=== PATIENT | female | born 1950 | race Caucasian/White ===

== ENCOUNTER 2024-01-13 08:15 | Outpatient (CLI) | payer MEDICARE, SELFPAY ==
--- NOTE | ~2024-01-13 | XR_ITS ---
EXAMINATION: XR lg joint inject/asp w image DATE: 01/13/2024 09:21 INDICATION: Left hip arthritis TECHNIQUE: A time-out was performed to verify the patient's name, date of , and procedure to b e performed. The procedure including the risks, benefits, and alternatives was discussed with the pat ient. Risks discussed included bleeding and infection. The patient understood the risks and agreed to proceed. The skin overlying the left hip joint was prepped and draped in usual sterile fashion. An esthetic was administered with 1% lidocaine subcutaneously. A 22 G needle was advanced under fluoros copic guidance into the joint. Injection of 1 mL of Omnipaque 240 confirmed intra-articular position of the needle. Subsequently, injectate consisting of 3 mL of a 2:1 mixture of 0.5% bupivacaine: 80 mg/mL Depo-Medrol for a total dosage of 80 mg Depo-Medrol was instilled. Washout of contrast was seen confirming intra-articular administration. The needle was removed and the entry site was cleaned and dressed. There were no immediate complications. Fluoroscopy exposure time was 0.1 minutes. The tota l number of images was 4. FINDINGS: Real-time fluoroscopy demonstrates the needle in the left joint. Patient's pain prior to pr ocedure:10/08. Patient's pain following the procedure: 05/11. IMPRESSION: 1. Successful left hip joint injection of local anesthetic and steroid with decrease in the patient's presenting pain. Reviewed, dictated and finalized at location A. IMPRESSION: 1. Successful left hip joint injection of local anesthetic and steroid with dec rease in the patient's presenting pain.
== END 2024-01-13 08:16 | disposition home or self-care (01) ==
LOC: ANHIMG 08:23
PROVIDERS: Visit Provider Orthopaedic Surgery
DX: M16.12 Unilateral primary osteoarthritis, left hip (principal)
CPT/HCPCS: 20610; 77002; J1010; Q9966

== ENCOUNTER 2024-04-21 13:58 | Outpatient (CLI) | payer MEDICARE, SELFPAY ==
--- NOTE | ~2024-04-21 | XR_ITS ---
EXAMINATION: XR lg joint inject/asp w image DATE: 04/21/2024 14:51 INDICATION: Left hip osteoarthritis TECHNIQUE: A time-out was performed to verify the patient's name, date of , and procedure to b e performed. The procedure including the risks, benefits, and alternatives was discussed with the pat ient. Risks discussed included bleeding and infection. The patient understood the risks and agreed to proceed. The skin overlying the left hip joint was prepped and draped in usual sterile fashion. An esthetic was administered with 1% lidocaine subcutaneously. A 22 G needle was advanced under fluoros copic guidance into the joint. Injection of 1 mL of Omnipaque 240 confirmed intra-articular position of the needle. Subsequently, injectate consisting of 3 mL of a 2:1 mixture of 0.5% bupivacaine: 80 mg/mL Depo-Medrol for a total dosage of 80 mg Depo-Medrol was instilled. Washout of contrast was seen confirming intra-articular administration. The needle was removed and the entry site was cleaned and dressed. There were no immediate complications. Fluoroscopy exposure time was 0.1 minutes. The tota l number of images was 2. Total DAP was 0.575 Gycm^2. FINDINGS: Real-time fluoroscopy demonstrates the needle in the left hip joint. Patient's pain prior t o procedure:12/09. Patient's pain following the procedure: 07/09. IMPRESSION: 1. Successful left hip joint injection of local anesthetic and steroid with decrease in the patient's presenting pain. Reviewed, dictated and finalized at location A. 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 Successful left hip joint injection of local anesthetic and steroid with dec rease in the patient's presenting pain.
--- OUTSIDE RECORDS SUMMARY | 2024-04-23 18:39 | XMS_ITS | Encounter Summary ---
Author Organization [facility] Address [address] [place] [address]. [place], [place] [id number] [place] [id number] Care Team Providers Care Development Professional Name Role Phone Yisel Su MD Primary Care Provider [phone] SumeetManuel Ruiz MD Primary Care Prov ider Encounter Details Date Type Department Care Team (Late Contact Info) Description 06/15/2021 Prep for Procedure [facility] [place] [address] Isaias Plascencia, DO [address] [facility] [address] [place] [address] Social History Tobacco Use Types Packs/Day Years Used Date Smoking Tobacco: Every Day Cigarettes 0.5 50 Smokeless Tobacco: Never Alcohol Use Standard Drinks/Week Comments Never 0 (1 standard drink = 0.6 oz pur e alcohol) Comments No Sex and Gender Information Value Date Recorded Sex Assigned at Not on file Legal Sex Female 10:35 AM CDT Gender Identity Not on file Sexual Orientation Not on file COVID-19 Exposure Response Date Recorded In the last 10 days, have yo u been in contact with someone who was confirmed or suspected to have Coronavirus/COVID-19? No / Unsure 06/15/2021 1:50 PM CDT documented as of this encounter Plan of Treatment Upcoming Encounters Date Type Department Care Team (Late st Contact Info) Description 08/17/2024 10:15 AM CDT Office Visit [facility], [address] [place] [address] Arleth Chavez, ANP- [facility]. 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
--- OUTSIDE RECORDS SUMMARY | 2024-04-23 18:39 | XMS_ITS | Data Portability ---
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 Name Role Phone ARAMIS SANCHES Primary Care Provider Assessment Encounter Date Assessment Date Assessment LastModified by Organization Details LastModified Time 10/24/2023 10/24/2023 72 yo; PMHx of DM, HTN, GERD ( h/o Barrets esophagus), CAD, Osteopenia, and HLD; presenting for med f/u, was restarted lisinopril for uncontrolled HTN [email or web address] Not available 10/26/2023 09:08:21 12/13/2023 12/13/2023 72 yo; PMHx of DM, HTN, GERD ( h/o Barrets esophagus), CAD, Osteopenia, and HLD; presenting for med f/u, was restarted lisinopril for uncontrolled HTN [email or web address] Not available 12/13/2023 09:04:34 01/07/2024 01/07/2024 72 yo; PMHx of DM, HTN, GERD ( h/o Barrets esophagus), CAD, Osteopenia, and HLD is here to discuss MRI results and med refill [email or web address] Not available 01/09/2024 23:45:41 02/06/2024 02/06/2024 72 yo; PMHx of DM, HTN, GERD ( h/o Barrets esophagus), CAD, Osteopenia, LBP and HLD is here for dental pain [email or web address] Not available 02/09/2024 19:47:25 Plan of Treatment Reminders Order Date Submit Date Provider Last Modified By Organization Details Last Modified Time Details Appointments ANY 15 2024 11:00A Mounika Sanches MD Not available Not available Not available Lab TSH + free T4, serum 2023 024 [facility], [address] [facility] [address] [address], [place], [address], 01/08/2024 04:11:30 HbA1c (hemog lobin A1c), blood 2023 024 [email or web address] In-Office Order, Internal Use Only DO Not Attach Compendium DO Not Attach Compendium, Do Not Delete/merge, [id number] 01/10/2024 00:03:11 BMP, serum or plasma 2023 024 [facility], [address] [facility] [address] [address], [place], [address], 01/08/2024 04:11:31 HbA1c (hemog lobin A1c), blood 2023 024 [email or web address] In-Office Order, Internal Use Only DO Not Attach Compendium DO Not Attach Compendium, Do Not Delete/merge, [id number] 03/13/2024 15:00:30 Referral dermat ologis t referr al [address] [facility], [address] , [place], [address], 01/13/2024 17:00:12 Procedures None record ed. Surgeries None record ed. Imaging MRI, lumbar spine, w/o contra st - Sciati c distri bution L leg pain and 1 month urinar y hesita ncy 2023 024 [facility], [address], [place], [address], 12/19/2023 18:44:55 US, pelvis , transa bdomin al + transv aginal 2023 024 [facility], [address] [facility], [place], [address], 02/10/2024 17:53:00 Medication Orders lisino pril 20 mg tablet 2023 024 [facility], [address] [place], [address], 01/09/2024 23:51:03 omepra zole 40 mg capsul e,azra yed releas e 2023 024 [facility], [address] [place], [address], 10/26/2023 09:20:53 tramad ol 50 mg tablet [address] [facility], [address] [place], [address], 12/13/2023 16:54:38 lisino pril 40 mg tablet [address] [facility], [address] [place], [address], 12/13/2023 15:14:48 meloxi cam 15 mg tablet 2023 024 [facility], [address] [place], [address], 04/07/2024 12:48:32 gabape ntin 600 mg tablet 2023 024 [facility], [address] [place], [address], 01/07/2024 10:22:28 amoxic illin 875 mg-pot assium clavul anate 125 mg tablet 2023 025 [facility], [address] [place], [address], 04/07/2024 12:38:00 Jardia nce 10 mg tablet 2023 024 [facility], [address] [facility] [facility] , [place], [address], 03/13/2024 15:00:45 Patient TargetsNo targets recorded. Patient Instructions Encounter Date Encounter Id Patient Instructions Last Modified By Organization Details Last Modified Time 10/24/2023 [id number] I was present to discuss the patient case with the resident in the Teach room. Agree with documentation. Angie Pop MD Family Medicine Faculty [email or web address] Not available 10/28/2023 15:21:06 12/13/2023 [id number] 72 yo w/ left hip/groin pain overlapping with c/o radicular left leg pain since July but worse in last month. Reportedly had MRI that showed advanced arthritis of L hip and plain films of lumbar spine that were relatively unremarkable, per her report. Urinary hesitancy present for a month and she relates it to worsening of the groin pain that radiates to (her) foot . MRI lumbar spine to rule out contribution to sx recommended. I was present and available in the family medicine clinic to discuss the patient's care during the appointment and the case was discussed with me. I interviewed and examined the patient.?? I agree with the resident's assessment and plan as documented.?? HL [email or web address] Not available 12/13/2023 17:05:43 01/07/2024 [id number] On the date of this encounter, I was available to assist the resident in the care of the patient, and have reviewed and agree with the resident? s findings and plan of care.---ALIA [email or web address] Not available 01/15/2024 09:12:54 02/06/2024 [id number] tooth decay: care instructions [email or web address] Not available 02/09/2024 19:53:07 I was present in the clinic to discuss this patient at the time of the visit. I agree with the documented assessment and plan. Bety Lawton MD [email or web address] Not available 02/10/2024 14:11:53 03/13/2024 [id number] A healthy lifestyle: care instructions [email or web address] Not available 03/13/2024 15:00:30 I was present and available in the Family Medicine clinic to discuss this patient's care for the duration of the appointment. I agree with the resident's assessment and plan as documented with the following addendum: None. Dr. Catracho Haji MD, FMOB Attending Physician, [facility]. 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 Referral for H istory of malignant melanoma of the skin Referring Physician: Aramis Sanches, Rotary Slicing Machine Operator, Encounter Date: 10/24/2023 Results Created Date Observation Date Name Description Value Unit Range Abnormal Flag Note LastModifiedBy Organization Detail LastModifiedTime 01/07/2001/08/2024 TSH+F REE T4 TSH 2.060 uIU/m L 0.450- 4.500 Not Available [facility] ([facility]) [address] [place], [address], 01/08/2024 04:11:29 01/07/2001/08/2024 TSH+F REE T4 T4,free(dire ct) 1.20 NG/dL 0.82-1 .77 Not Available [facility] ([facility]) [address] [place], [address], 01/08/2024 04:11:29 01/07/20 24 01/08/2024 BASIC METAB OLIC PANEL (8) glucose 137 mg/dL 70-99 above high normal Not Available [facility] ([facility]) [address] [place], [address], 01/08/2024 04:11:31 01/07/2001/08/2024 BASIC METAB OLIC PANEL (8) BUN 22 mg/dL 8-27 Not Available [facility] ([facility]) [address] [place], [address], 01/08/2024 04:11:31 01/07/20 24 01/08/2024 BASIC METAB OLIC PANEL (8) creatinine 0.77 mg/dL 0.57-1 .00 Not Available [facility] ([facility]) [address] [place], [address], 01/08/2024 04:11:31 01/07/2001/08/2024 BASIC METAB OLIC PANEL (8) eGFR 82 mL/mi n/1.7 3 >59 Not Available [facility] ([facility]) [address] [place], [address], 01/08/2024 04:11:31 01/07/2001/08/2024 BASIC METAB OLIC PANEL (8) BUN/creatini ne ratio 29 12-28 above high normal Not Available [facility] ([facility]) [address] [facility] [place], [address], 01/08/2024 04:11:31 01/07/2001/08/2024 BASIC METAB OLIC PANEL (8) sodium 138 mmol/ L 134-14 4 Not Available [facility] ([facility]) [address] [facility] [place], [address], 01/08/2024 04:11:31 01/07/2001/08/2024 BASIC METAB OLIC PANEL (8) potassium 5.0 mmol/ L 3.5-5. 2 Not Available [facility] ([facility]) [address] [facility] [place], [address], 01/08/2024 04:11:31 01/07/2001/08/2024 BASIC METAB OLIC PANEL (8) chloride 98 mmol/ L 96-106 Not Available [facility] ([facility]) [address] [facility] [place], [address], 01/08/2024 04:11:31 01/07/2001/08/2024 BASIC METAB OLIC PANEL (8) carbon dioxide, total 22 mmol/ L 20-29 Not Available [facility] ([facility]) [address] [facility] [place], [address], 01/08/2024 04:11:31 01/07/20 24 01/08/2024 BASIC METAB OLIC PANEL (8) calcium 9.7 mg/dL 8.7-10 .3 Not Available [facility] ([facility]) [address] [facility], [place], [address], 01/08/2024 04:11:31 01/07/20 24 01/07/2024 HbA1c (hemo globi n A1c), blood HbA1c 6.8 Not Available In-Office Order Internal Use Only DO Not Attach Compendium DO Not Attach Compendium, Do Not Delete/merge, [id number] 01/07/2024 10:49:35 03/13/20 24 03/13/2024 HbA1c (hemo globi n A1c), blood HbA1c 7.2 Not Available In-Office Order Internal Use Only DO Not Attach Compendium DO Not Attach Compendium, Do Not Delete/merge, [id number] 03/13/2024 14:34:51 12/19/19 24 12/18/2023 MRI, lumba r spine , w/o contr ast No observ ation record ed. [facility] [address], [place], [address], 12/31/2023 09:58:06 02/26/20 24 US, pelvi s, compl ete [facility] [address] [place] [address] [facility] [place] [address] [facility] [address] [place] [id number] CHRISTINA G BARB S: US PELVIC NON OB COMP TA DATE: 2023 3:06 PM HISTOR Y: Pain in pelvis . 73-yea r-old postme nopaus al female . Left lower quadra nt abdomi nal/pe lvic pain and left groin pain since July 2023. Patien t report s prior hip proble ms with therap eutic inject ions but pain never entire ly resolv ed. Report ed family histor y of inguin al hernia s. Report ed prior transv aginal pelvic ultras ound at [facility] with report ed few small calcif ied fibroi ds but otherw ise negati ve. Deedee killian report s histor y of laparo scopic evalua tion of her left ovary but no surgic al interv ention /oopho rectom y. COMPAR TRAM: None this instit ution. Report ed prior pelvic ultras ound is not in the PACS system . DISCUS EUSEBIO: Transa bdomin al pelvic ultras ound: Anteve rted uterus is 5.8 x 2.5 x 4.7 cm. Endome trium not adequa tely visual ized on transa bdomin al imagin g. Ovarie s are not visual ized due to bowel. No appare nt free pelvic fluid. On limite d imagin g [facility] the left [facility] ed area of pain, no apprec iable sonogr aphic abnorm ality. Pativipin t declin ed transv aginal pelvic ultras ound exam today statin g she had one done at [facility]. IMPRES EUSEBIO: 1. Only transa bdomin al examin ation perfor med as the patien t declin ed transv aginal imagin g. 2. Relati vely small uterus . Otherw ise limite d evalua tion of the uterus includ ing inabil ity to adequa tely visual ize the endome trium. 3. Bowel gas obscur es the ovarie s and adnexa (ovari es not visual ized on transa bdomin al imagin g). 4. Consid er furthe r evalua tion with pelvic CT and/or MRI if clinic ally indica wily. Ordere d By: ROZINA Callejas onical ly Signed By: Monica Keys on 2023 8:44 AM Interp reted By: Monica Keys , 2023 8:32 AM cathyshravan [facility] [address] [facility], [place], [address], 02/26/2024 13:08:33 Result Notes None recorded. Problems Name Problem SNOMED Code Status Onset Date Resolution Date Notes Provider Name and Address Organization Details Recorded Time Tobacco dependen ce syndrome 20680499 Active 2017 1/2ppd currentl [place] rTuong [place], [place] - [facility] 8 15:26:50 Osteopen ia 879476855 Active 2017 10 yr FRAX risk: Major osteopor otic = 8.0%, Hip Fracture = 0.7%. (cutoffs 20%, 3.0% respecti vely) Truong Arevalo [place], [place] - [facility] 8 15:47:33 Hyperlip idemia 62281895 Active 2020 JOHN SINGH MD Attn: Accounting, [address] [place], [address], [place] [facility] 4 11:34:35 Liver enzymes level above referenc e range 010111724 Completed 202010/08/2023 JOHN SINGH MD Attn: Accounting, [address] [place], [address], [place] [facility] 4 11:54:25 Coronary atherosc lerosis 992706102 Active 2020 Yisel [place] [facility] 1 16:36:13 SARS-CoV -2 mRNA vaccine declined 4525862712 Active 2021 JOHN SINGH MD Attn: Accounting, [address] [place], [address], [place] [facility] 4 11:46:00 Diabetes mellitus 53280832 Active 2022 Y[place] [facility] 3 12:30:50 Pain in finger 85534574 Active 2022 [place] [facility] 3 12:30:52 Neuropat hy 899006652 Active 2022 Yisel [place] [facility] 3 12:30:53 Smoker 10835235 Active 2022 [place] [facility] 3 12:30:56 Fatigue 13567205 Active 2022 [place] [facility] 3 12:30:59 Morbid obesity 351866742 Completed 202204/21/2022 Removal Reason: BMI <35 JOHN SINGH MD Attn: Accounting, [address] [facility], [place], [address], [place] [facility] 4 11:52:46 Bilatera l trigger fingers 5637454062 1720188 Active 2022 Yisel [place] [facility] 3 19:56:46 Ingrowin g toenail 034702845 Active 2022 Yisel [place] [facility] 3 19:56:47 Liver enzymes level above referenc e range 393300303 Active 2020 JOHN SINGH MD Attn: Accounting, [address] [facility], [place], [address], [place] [facility] 4 11:54:25 Patel' s esophagu s 476460323 Completed 202404/07/2024 Allegra Herrera RN [place] [facility] 5 16:39:40 Bleeding internal hemorrho ids 98301193 Completed 201611/14/2017 Removal Reason: resolved Truong [place] [facility] 8 15:26:00 Patel' s esophagu s with esophagi tis 509145259 Completed 201611/14/2017 Tru[place] [facility] 15:26:33 Adult health examinat ion Completed 201612/20/2016 Tru[place] [facility] 7 16:27:19 Body mass index 30+ - obesity 330462362 Active 2016 JOHN SINGH MD Attn: Accounting, [address] [facility], [place], [address], [place] [facility] 4 11:46:16 Type 2 diabetes mellitus 28692539 Active 2016 a1c 7.2 10/2017 from 7.0 06/2017. [place] [facility] 8 15:55:01 Increase d blood pressure 42619325 Completed 201604/20/2022 Removal Reason: Progress ed to hyperten sive disorder JOHN SINGH MD Attn: Accounting, [address] [facility], [place], [address], [place] [facility] 4 11:45:33 Epigastr ic pain 32627562 Completed 201611/14/2017 Removal Reason: resolved Tru[place] [facility] 8 15:26:12 Gastro-e sophagea l reflux disease with esophagi tis 274871412 Active 2016 +Patel 's esophagu s Truong [place] [facility] 15:26:30 Problem Notes None recorded. Procedures Surgical History Date Name Laterality Status Provider Name and Address Organization Details Recorded Time 2 Diabetic Foot Exam [place] [facility] 09/22/2021 13:58:46 1 Diabetic Foot Exam [place] [facility] 07/22/2020 11:37:38 8 Diabetic Foot Exam [place] [facility] 07/23/2017 10:56:17 8 Joint Injection [place] [facility] 07/23/2017 10:57:58 8 Ankle arthroscopy/rucker rgery [place] Truong [place] [facility] 12/20/2016 19:04:09 3 Ankle arthroscopy/rucker rgery [place] Tru[place] [facility] 12/20/2016 19:03:36 1 Knee Surgery [place] Truong [place] [facility] 12/20/2016 19:04:53 Imaging Results Imaging Date Name Status LastModified by Organiz ation Details LastModified Time 12/18/2023 MRI, lumbar spine, w/o contrast completed [facility] [address], [place], [address], 12/31/2023 09:58:06 02/26/2024 US, pelvis, complete completed [facility] [address] [facility], [place], [address], 02/26/2024 13:08:33 Procedure Notes None recorded. Medical Equipment None Reported. Allergies Allergen ID Allergen Name Allergen Category Reaction Reaction Severity Criticality Documentation Date Start Date Code Code System Note Provider Name and Address Organization Details Recorded Time [id number] egg extract food,medi cation itching Not available Not available 09/22/2021 61057 15 RxNorm Not Available Not Available Not Available [id number] 1bdae lactase medicatio n itching Not available Not available 09/22/2021 48905 RxNorm Not Available Not Available Not Available [id number] c2b23 Milk (substanc e) food,medi cation itching Not available Not available 06/11/2023 85552 002 SNOMED Not Available Not Available Not Available Medications Name Sig Start Date Stop Date Status Note LastModified by Organization Details LastModified Time atorvasta tin 40 mg tablet Take 1 tablet every day by oral route. 10/21 completed Not Available Not Available Not Available metformin 500 mg tablet Take 1 tablet by mouth once daily for 90 days active Not Available Not Available No t Available atorvasta tin 80 mg tablet Take 1 tablet every day by oral route. 04/22 completed Not Available Not Available Not Available gabapenti n 600 mg tablet TAKE 1 TABLET BY MOUTH AT BEDTIME FOR NEUROPAT HY active Not Available Not Available No t Available azithromy jose 250 mg tablet TAKE 2 TABLETS BY MOUTH ON DAY 1, AND THEN TAKE 1 TABLET BY MOUTH ONCE A DAY ON DAY 2 THROUGH DAY 5 02/05 completed Not Available Not Available Not Available glyburide 5 mg tablet Take by oral route for 90 days. 04/20 completed Not Available Not Available Not Available metoprolo l succinate ER 50 mg tablet,ex tended release 24 hr Take 1 tablet every day by oral route in the morning. active Not Available Not Available No t Available hydrocodo ne 5 mg-acetam inophen 325 mg tablet TAKE 1 TABLET BY MOUTH EVERY 6 HOURS NEEDED 08/21 completed Not Available Not Available Not Available meloxicam 15 mg tablet TAKE 1 TABLET BY MOUTH ONCE DAILY WITH A MEAL FOR HIP PAIN 2024 active Not Available Not Available Not Avai lable lisinopri l 20 mg tablet TAKE 1 TABLET BY MOUTH ONCE DAILY 01/08 completed Not Available Not Available Not Available clopidogr el 75 mg tablet 08/21 completed Not Available Not Available Not Available amlodipin e 5 mg tablet 03/13 completed Not Available Not Available Not Available omeprazol e 40 mg capsule,d elayed release TAKE 1 CAPSULE BY MOUTH ONCE DAILY active Not Available Not Available No t Available aspirin 81 mg tablet,de layed release Take 1 tablet every day by oral route. active Not Available Not Available No t Available tramadol 50 mg tablet TAKE 1 TABLET BY MOUTH TWICE DAILY NEEDED active Not Available Not Available No t Available spironola ctone 25 mg tablet 11/25 completed Not Available Not Available Not Available glimepiri de 2 mg tablet TAKE 1 TABLET BY MOUTH ONCE DAILY 10/08 completed Not Available Not Available Not Available dexametha sone sodium phosphate 0.1 % eye drops 05/06 completed Not Available Not Available Not Available meloxicam 7.5 mg tablet Take 1 tablet every day by oral route. 08/21 completed Not Available Not Available Not Available oxycodone -acetamin ophen 5 mg-325 mg tablet active Not Available Not Available Not Available amlodipin e 10 mg tablet Take 1 tablet every day by oral route. active Not Available Not Available No t Available triamcino lone acetonide 40 mg/mL suspensio n for injection in office - med provided 11/14 completed charted by sweis,cm a Not Available Not Available Not Available erythromy jose 5 mg/gram (0.5 %) eye ointment APPLY 1 CM RIBBON INTO THE LOWER CONJUNCT IVAL SAC(S) IN THE AFFECTED EYE(S) BY OPHTHALM IC ROUTE 3 TIMES PER DAY 11/14 completed Not Available Not Available Not Available metformin 1,000 mg tablet TAKE 1 TABLET BY MOUTH TWICE DAILY active Not Available Not Available No t Available lisinopri l 10 mg tablet Take 1 tablet every day by oral route as directed . 08/21 completed Not Available Not Available Not Available metoprolo l tartrate 50 mg tablet active Not Available Not Available Not Available nitroglyc jame 0.4 mg sublingua l tablet active Not Available Not Available Not Available gabapenti n 300 mg capsule Take 1 capsule every day by oral route at bedtime for 30 days. 04/20 completed Not Available Not Available Not Available lisinopri l 5 mg tablet Take 1 tablet by mouth once daily active Not Available Not Available No t Available lisinopri l 40 mg tablet TAKE 1 TABLET BY MOUTH ONCE DAILY active Not Available Not Available No t Available metformin ER 500 mg tablet,ex tended release 24 hr Take 1 tablet twice a day by oral route for 60 days. 08/21 completed Not Available Not Available Not Available amoxicill in 875 mg-potass ium clavulana te 125 mg tablet Take 1 tablet every 12 hours by oral route with meal(s) for 7 days, for dental caries. 04/07 completed Not Available Not Available Not Available cyclobenz aprine 5 mg tablet TAKE 1 TABLET BY MOUTH THREE TIMES DAILY NEEDED FOR MUSCLE SPASM 08/21 completed Not Available Not Available Not Available Ciprodex 0.3 %-0.1 % ear drops,jerri pension INSTILL 4 DROPS INTO AFFECTED EAR(S) BY OTIC ROUTE 2 TIMES PER DAY FOR 7 DAYS 05/06 completed Not Available Not Available Not Available rosuvasta tin 20 mg tablet Take 1 tablet by mouth once daily 2024 active Not Available Not Available Not Avai lable metformin ER 1,000 mg tablet,ex tended release 24hr (osmotic) 08/24 completed Not Available Not Available Not Available omeprazol e 40 mg-sodium bicarbona te 1.1 gram capsule Take 1 capsule twice a day by oral route. 11/14 completed Not Available Not Available Not Available nebivolol 10 mg tablet TAKE 1 TABLET BY MOUTH ONCE DAILY active Not Available Not Available No t Available diclofena c 1 % topical gel APPLY 2 GRAM TO THE AFFECTED AREA(S) BY TOPICAL ROUTE 4 TIMES PER DAY 05/06 completed Not Available Not Available Not Available ticagrelo r 90 mg tablet Take 1 tablet twice a day by oral route. 01/19 completed Not Available Not Available Not Available Jardiance 10 mg tablet Take 1 tablet every day by oral route for 30 days. active Not Available Not Available No t Available OneTouch Ultra Blue Test Strip 04/22 completed Not Available Not Available Not Available OneTouch Ultra2 Meter 04/22 completed Not Available Not Available Not Available OneTouch Delica Plus Lancet 33 gauge 04/22 completed Not Available Not Available Not Available Vitals Date Recorded Body height Provider Name an d Address Organization Details Last Updated DateTime 10/24/2023 167.64 cm Melissa Marshall MA [facility] 10:45:06 Date Recorded Body mass index (BMI) Body weight Provider Name and Address Organization Details Last Updated DateTime 10/24/2023 31.6 kg/m2 10319.1 g Melissa Marshall MA [facility] 10/24/2023 10:46:37 Date Recorded Heart rate Provider Name an d Address Organization Details Last Updated DateTime 10/24/2023 69 /min Melissa Marshall MA [facility] 024 10:47:28 Date Recorded Oxygen saturation Oxygen saturation in Arterial blood by Pulse oximetry Provider Name and Address Organization Details Last Updated DateTime 10/24/2023 96 % 96 % Melissa Marshall MA [facility] 10/24/2023 10:47:32 Date Recorded Body temperature Provider Name a nd Address Organization Details Last Updated DateTime 10/24/2023 98.3 [degF] Melissa Marshall MA [facility] 2023 10:48:58 Date Recorded Body height Provider Name an d Address Organization Details Last Updated DateTime 12/13/2023 167.64 cm Mirella Vazquez MA [facility] 12/13/2023 09:01:53 Date Recorded Body mass index (BMI) Body weight Provider Name and Address Organization Details Last Updated DateTime 12/13/2023 30.1 kg/m2 94653.98 g BOOKER Tony [facility] 12/13/2023 09:04:58 Date Recorded Body temperature Provider Name a nd Address Organization Details Last Updated DateTime 12/13/2023 97.2 [degF] Mirella Vazquez MA [facility] [facility] 12/13/2023 09:05:00 Date Recorded Oxygen saturation Oxygen saturation in Arterial blood by Pulse oximetry Provider Name and Address Organization Details Last Updated DateTime 12/13/2023 98 % 98 % BOOKER Tony [facility] 12/13/2023 09:05:14 Date Recorded Heart rate Provider Name an d Address Organization Details Last Updated DateTime 12/13/2023 102 /min Mirella Vazquez MA [facility] 11/30 09:05:16 Date Recorded Body height Provider Name an d Address Organization Details Last Updated DateTime 01/07/2024 167.64 cm Asad Hand MA [facility] 2023 09:58:32 Date Recorded Body mass index (BMI) Body weight Provider Name and Address Organization Details Last Updated DateTime 01/07/2024 31.2 kg/m2 20628.33 g Asad Hand MA [facility] 01/07/2024 09:58:35 Date Recorded Heart rate Provider Name an d Address Organization Details Last Updated DateTime 01/07/2024 75 /min Asad Hand MA [facility] 2023 10:00:10 Date Recorded Body temperature Provider Name a nd Address Organization Details Last Updated DateTime 01/07/2024 97.4 [degF] Asad Hand MA [facility] 01/07/2024 10:00:38 Date Recorded Body height Provider Name an d Address Organization Details Last Updated DateTime 02/06/2024 167.64 cm Mirella Vazquez MA [facility] 02/06/2024 12:38:22 Date Recorded Body mass index (BMI) Body weight Provider Name and Address Organization Details Last Updated DateTime 02/06/2024 31.3 kg/m2 79247.27 g Daynarosalba BOOKER Vazquez [facility] 02/06/2024 12:40:37 Date Recorded Body temperature Provider Name a nd Address Organization Details Last Updated DateTime 02/06/2024 98.6 [degF] Mirella Vazquez MA [facility] 02/06/2024 12:40:40 Date Recorded Oxygen saturation Oxygen saturation in Arterial blood by Pulse oximetry Provider Name and Address Organization Details Last Updated DateTime 02/06/2024 96 % 96 % Mirella Vazquez MA [facility] 02/06/2024 12:40:43 Date Recorded Heart rate Provider Name an d Address Organization Details Last Updated DateTime 02/06/2024 88 /min iMrella Vazquez MA [facility] 09/2023 12:40:47 Date Recorded Body height Provider Name an d Address Organization Details Last Updated DateTime 03/13/2024 167.64 cm Mirella Vazquez MA [facility] 03/13/2024 14:14:08 Date Recorded Body mass index (BMI) Body weight Provider Name and Address Organization Details Last Updated DateTime 03/13/2024 31.8 kg/m2 59305.1 g Mirella Vazquez MA [facility] 03/13/2024 14:24:54 Date Recorded Body temperature Provider Name a nd Address Organization Details Last Updated DateTime 03/13/2024 98.6 [degF] Mirella Vazquez MA [facility] 03/13/2024 14:25:09 Date Recorded Oxygen saturation Oxygen saturation in Arterial blood by Pulse oximetry Provider Name and Address Organization Details Last Updated DateTime 03/13/2024 95 % 95 % Mirella Vazquez MA [facility] 03/13/2024 14:25:49 Date Recorded Heart rate Provider Name an d Address Organization Details Last Updated DateTime 03/13/2024 86 /min Mirella Vazquez MA [facility] 03/01 14:26:18 Date Recorded Systolic blood pressure Diastolic blood pressure Provider Name and Address Organization Details Last Updated DateTime 10/24/2023 175 mm[Hg] 78 mm[Hg] Melissa Marshall [place] [facility] [place] 10/24/2023 10:47:10 Date Recorded Systolic blood pressure Diastolic blood pressure Provider Name and Address Organization Details Last Updated DateTime 10/24/2023 132 mm[Hg] 77 mm[Hg] Aramis Sanches MD Attn: [address] [place], [address], [place] [facility] [place] 10/24/2023 11:12:43 Date Recorded Systolic blood pressure Diastolic blood pressure Provider Name and Address Organization Details Last Updated DateTime 12/13/2023 177 mm[Hg] 103 mm[Hg] Mirella Vazquez [place] [facility] [place] 12/13/2023 09:06:32 Date Recorded Systolic blood pressure Diastolic blood pressure Provider Name and Address Organization Details Last Updated DateTime 01/07/2024 176 mm[Hg] 91 mm[Hg] Asad Hand [place] [facility] [place] 01/07/2024 10:00:31 Date Recorded Systolic blood pressure Diastolic blood pressure Provider Name and Address Organization Details Last Updated DateTime 01/07/2024 156 mm[Hg] 86 mm[Hg] Aramis Sanches MD Attn: [address] [place], [address], [place] 01/07/2024 10:25:13 Date Recorded Systolic blood pressure Diastolic blood pressure Provider Name and Address Organization Details Last Updated DateTime 02/06/2024 153 mm[Hg] 80 mm[Hg] Mirella Vazquez [place] [facility] [place] 02/06/2024 12:41:44 Date Recorded Systolic blood pressure Diastolic blood pressure Provider Name and Address Organization Details Last Updated DateTime 02/06/2024 149 mm[Hg] 87 mm[Hg] Aramis Sanches MD Attn: [address] [place], [address], [place] 02/06/2024 13:09:34 Date Recorded Systolic blood pressure Diastolic blood pressure Provider Name and Address Organization Details Last Updated DateTime 03/13/2024 153 mm[Hg] 81 mm[Hg] Mirella Vazquez [place] [facility] [place] 03/13/2024 14:26:21 Date Recorded Systolic blood pressure Diastolic blood pressure Provider Name and Address Organization Details Last Updated DateTime 03/13/2024 122 mm[Hg] 77 mm[Hg] Aramis Sanches MD Attn: [address], [place], [address], [facility] 03/13/2024 14:59:25 Social History Question Answer Notes LastModified by Organizat ion Details LastModified Time Tobacco Smoking Status Current Every Day Smoker Truong Arevalo [place], [facility] 03/23/2019 15:23:05 What Is Your Level Of Alcohol Consumption? None Information not available 07/22/2020 Do You Or Have You Ever Used E-cigarettes Or Vape? Never Used Electronic Cigarettes Information not available 04/22/2020 What Was The Date Of Your Most Recent Tobacco Screening? 03/13/2024 Information not available 03/13/2024 Do You Or Have You Ever Used Smokeless Tobacco? Never Used Smokeless Tobacco Information not available 04/22/2020 How Much Tobacco Do You Smoke? 0.5 PPD -Pt Says She Is Down To 2 Cigarettes Per Day. (08/23/2020) 01/19/21 States Approx 1/2 Pack/day. [email or web address] Information not available 01/19/2021 Do You Use Any Illicit Or Recreational Drugs? No Information not available 07/22/2020 Has Tobacco Cessation Counseling Been Provided? Yes Information not available 02/06/2024 On What Date Was Tobacco Cessation Counseling Provided? 02/06/2024 Information not available 02/06/2024 How Many Years Have You Smoked Tobacco? 40 [email or web address] Information not available 12/20/2016 Do You Or Have You Ever Used Any Other Forms Of Tobacco Or Nicotine? No [email or web address] Information not available 08/23/2020 Sex: Unknown Functional Status None recorded. Mental Status None recorded. Family History Relationship Description Onset Age of this Age Resolved Age Notes LastModified by Organization Details LastModified Time Father Coronary arterioscler osis [email or web address] Not available 2016 18:58:36 Father Hypertensive disorder Not available 2016 18:59:13 Father Diabetes mellitus [email or web address] Not available 2016 18:59:23 Brother Coronary arterioscler osis 35 [email or web address] Not available 2016 18:58:42 Mother Hypertensive disorder [email or web address] Not available 2016 18:59:13 Mother Hypothyroidi sm [email or web address] Not available 2016 18:59:32 Medical History Condition Response Coronary Artery Disease N Thyroid Disease N Atrial Fibrillation N Depression N COPD N Congenital Heart Disease N Peripheral Arterial Disease N Pacemaker N Anemia N TIA N Genitourinary Disease N Gastrointestinal Disease N Deep Vein Thrombosis N Diabetes Y Cardiomyopathy N Blood Clot N Myocardial Infarction N Congestive Heart Failure (CHF) N Valvular Heart Disease N Hyperlipidemia Y Cancer N Stroke N Asthma N Atrial Flutter N Carotid Disease N Sleep Apnea N Sleep Disorder N Aortic Aneurysm N GERD/Reflux N High Cholesterol Y Warfarin Management N Neurologic Disorder N Liver Disease N Heart Disease N Valvular Abnormalities N Arrhythmia Y Hypertension Y Kidney Disease N Hematologic Disease N Gynecological History Statement/Question Response Menses Monthly N Date of Last Pap Smear Date of Last Mammogram Obstetrics History GPAL:G 0 P 0 0 0 0 Past Encounters Encounter ID Performer Location Encounter Start Date Encounter Closed Date Diagnosis/Indication Diagnosis SNOMED-CT Code Diagnosis ICD10 Code Diagnosis Note [id number] Alayna Harris MD [facility] ([address]) [address] [place] [address] 12/20/2016 14:49:37 12/21/2016 11:39:04 Increased blood pressure 14140286 R03.0 Initially 164/96, 140/88 on recheck.- Will repeat at nurse visit in 1 week, if >140/90 will start lisinopril 20 QD. Type 2 bob betes mellitus 91306382 E11.9 Reported A1C 04/2016 of 6.7%, already on metformin 500 BID, strong FmHx of CAD and PVD.- repeat A1C- lipid panel- microalbum in:creatin ine- BMP- calculate ASCVD, consider statin Patel's esophagus with esophagitis 414566354 K22.70 Dx 2011, apparent recent EGD 2013.- Will get outside records and refer to GI. Bleeding i nternal hemorrhoids 02410016 K64.8 Dx 2011, apparent recent EGD 2013. - Will get outside records and refer to GI. Adult heal th examination 687306642 Z00.00 Need hx of paps and DEXA. Pt c/o fatigue. Pt to get outside records. Declines all vaccines at this time.- Consider CBC, TSH if fatigue continues. - Needs mammo Body mass index 30+ - obesity 511665593 Z68.39 Counseled weight loss with exercise and dietary changes. [id number] Alayna Harris MD [facility] ([address]) [address] [place] [address] 12/27/2016 13:45:53 12/28/2016 10:17:31 Increased blood pressure 67601869 R03.0 164/96, 140/88 on recheck 12/20/47287 /80 today.- BP at goal, no medical management at this time. [id number] Alice fraire MD [facility] [address] [facility] [address] [place] [address] 04/11/2017 11:13:15 04/16/2017 16:52:42 Corneal abrasion 87943551 S05.02XA Tetracaine administer ed in office. Provided script for erythromyc in ointment. If pain worsens in 2-3days or patient notices worsening vision, fevers/chi lls/discha rge RTC HIRO or call for Ophtho referral. [id number] Timothy Bagley MD [facility] [address] [facility] [address] [place] [address] 07/23/2017 09:57:35 07/24/2017 13:56:40 Type 2 diabetes mellitus 15334650 E11.9 Last A1c 6.6 (11/2016). Reports good compliance with daily metformin regiment. New-onset peripheral neuropathy of toes bilaterall y. Will get repeat A1c, podiatry, and optometry referral today. Screening for malignant neoplasm of breast 192166703 Z12.31 Last screening mammogram several years ago. Does note history of cystic lesion within left? breast. Patient unsure whether right versus left but suspects left breast. Will get repeat screening annual mammogram today. Adult the [facility] examination 121043058 Z00.00 Overall healthy-ap pearing 66-year-ol d seen in clinic today for routine clinic follow-up visit. Preventati ve medicine: -Mammograp hy: Repeat annual mammogram today -Colonosco py: Last colonoscop y 11/2016, negative recommende d repeat 10 years -Recommend ed Pneumovax vaccinatio n today, patient declined Trigger finger 070466184 1 94218 M65.30 Right hand, 4th finger trigger finger injection in office today. Tolerated the procedure well without complicati ons. See procedure note for details. [id number] Romi Elosidavid [facility] [address] [facility] [address] [place] [address] 11/14/2017 14:04:37 11/15/2017 16:57:33 Type 2 diabetes mellitus 67400690 E11.9 Control:- a1c 7.0 07/23/2017- repeat a1c Meds:- continue metformin 500/bid Ppx/Survei llance:- on high-inten sity statin, ASA 81- would start ACEi/ARB if needed for BP- urine microalbum in, CMP, CBC, lipid Complicati ons:- neuropathy : mild subjective plantar numbness- nephropath y: none- retinopath y: none Gastro-eso phageal reflux disease with esophagitis 388417431 K21.0 Hx of Patel's. Sx controlled with PPI. Long-term PPI use can be associated with malabsorpt ion syndromes. Also, pt states potentiall y inappropri ate multiple OTC vitamins and supplement s.- continue omeprazole 40/d- bring all OTC supplement s and vitamins to next appt- check CBC, CMP, Mg Myalgia/my ositis - multiple 149247325 M79.1 Chronic, stable, not improving. No hx or external signs of trauma. DDx: dehydratio n, endocrine and/or metabolic derangemen t, rhabdomyol ysis, inflammato ry myositis:- ESR, CRP, CK- CMP as above Fatigue 57601976 R53.83 Chronic, stable, not improving. DDx: anemia, endocrine and/or metabolic derangemen t- CBC as above- TSH reflex T4- CMP as above Multiple joint pain 3567 8005 M25.50 Chronic, worsening. Mild non-specif ic findings on joint exam, potentiall y indicative of inflammato ry arthritis. DDx OA.- anti-CCP: IgA/IgG, Rh factor- CBC, CMP as above Screening for osteoporosis 237930991 Z13.820 Postmenopausal state 764 74762 Z78.0 [id number] Alice fraire MD [address] [address] 12/23/2017 10:36:51 12/24/2017 10:53:31 Otitis externa 0762641 H60.91 Uncomplica wily otitis externa over the right ear. We will treat with Ciprodex, 4 gtt twice daily ? 7 days. If symptoms continue to persist/no t-improve over the next 1-2 weeks patient to return to clinic for repeat evaluation . [id number] Rafael Benavides DO [address] [address] 01/23/2018 11:44:06 01/24/2018 10:23:35 Tendinitis of right pes anserinus 2738970429 9533067 M76.891 1 month of pain, worse with activity better with rest. Tried occasional aleve, sam newman, cold pack. - topical diclofenac up to qid- avoid oral NSAIDs- RICE- RTC 4-6 weeks if no improvemen t to re-assess- would likely send for PT if continued pain [id number] Scooter Esparza MD [address] [address] 03/02/2019 14:19:21 03/06/2019 11:44:34 Type 2 diabetes mellitus 53847278 E11.9 Control:- a1c 7.1 10/2017- repeat a1c Meds:- continue metformin 500/bid Ppx/Survei llance:- on high-inten sity statin, ASA 81- would start ACEi/ARB if needed for BP- urine microalbum in, CMP, CBC, lipid Complicati ons:- neuropathy : mild subjective plantar numbness- nephropath y: none- retinopath y: none Gastro-eso phageal reflux disease with esophagitis 862349528 K21.0 Hx of Patel's. Sx controlled with PPI. Long-term PPI use can be associated with malabsorpt ion syndromes. Also, pt states potentiall y inappropri ate multiple OTC vitamins and supplement s.- continue omeprazole 40/d- send to GI for repeat EGD given continued chronic need of PPI. Hepatitis C screening 41 9826268 Z11.59 Pt requests HCV screening [id number] Boyd Rodriguez MD [facility] [address] [facility] [address] [place] [address] 04/22/2020 10:36:56 04/25/2020 11:54:14 Obesity 146211478 E66.9 BMI 33.7. A1c due at this time, as well as CBC BMP Lipids. Patient's symptoms possibly 2/2 to hypothyroi dism. Check TSH today. Stable angina 309914906 I20.8 CP with exertion. Has had stress tests previously , 7 years ago. Patient's parents have both had quadruple bypass. Patient denies Chest pain at this time. Refer to cardiology today. Continue ASA 81 mg daily. Gastro-eso phageal reflux disease with esophagitis 820989476 K21.00 Patient previously establishe d with Dr. Vides. Patient with establishe d GERD with esophagiti s. Symptoms concerning for developing Patel's esophagus. Follow up with Dr. Vides. New Gastroente rology referral placed. EGD needed. Type 2 bob betes mellitus 80468963 E11.9 Patient currently taking Metformin 500mg once a day due to intoleranc e with higher doses. Continue at once a day and follow up A1c. Myalgia ca used by statin 2159777717 3053904 M79.10 Myalgia's 2/2 to Atorvastat in use. Discontinu e today and switch to a different statin. Obtain lipid panel today. Calculate ASCVD after receiving results. [id number] Chris Arredondo MD [facility] [address] [place] [address] 05/06/2020 14:14:57 05/12/2020 10:00:18 Chest pain on exertion 96228295 R07.89 exertional chest pain, abnormal ECG Dyspnea on exertion 6084 5006 R06.09 Hyperlipidemia 47087293 E78.5 recheck on crestor [id number] Maryse Martinez [facility] [address] [facility] [address] [place] [address] 07/22/2020 10:38:10 07/25/2020 06:54:52 Type 2 diabetes mellitus 93698775 E11.9 Last A1C:{{less than 7.0% 7-8% 8-9%* grea ter than 9%}}Goal A1C less than:{{7.0 % 8.0%*}}C urrent Therapy:{{ metformin sulfonylur ea TZD SGL T-2 DDP-4 GLP-1 RA long-ac ting insulin ra pid/short- acting insulin me tformin 500 mg QD#}} {{metformi n sulfonyl urea TZD S GLT-2 DDP- 4 GLP-1 RA long-ac ting insulin ra pid/short- acting insulin}}S tatin:{{ye s* no decl ined due to adverse reaction/a llergy dec lined}}GABRIEL /ARB:{{yes no* no due to negative nephropath y screening contraindi cated decl ined due to adverse reaction/a llergy dec lined}}Donovan t Exam:{{com pleted in the past 12 months-neg ative comp leted in the past 12 months-pos itive* com pleted in the past 12 months- result unknown du e}}Nephrop athy Screening: {{complete d in the past 12 months- negative c ompleted in the past 12 months- positive d ue*}}Pneum ovax 23:{{UTD D eclined No t given*}}Ey e Exam:{{com pleted in the last 12 months- negative c ompleted in the last 12 months- positive c ompleted per patient report due - recommende d annual dilated eye exam*}}Pat ient Education: healthy diet: {{yes no}} exercise: {{yes no}} weight loss: {{yes no}} foot care: {{yes no}} complicati ons of uncontroll ed diabetes: {{yes no}} medicatio n compliance : {{yes no}} Will not start new DM medication today. Patient to continue to improve on diet. Will repeat A1c in 3 months and initiate new DM medication if necessary. Pt verbalized understand ing. Next Visit: {{1 2 3* 4 5 6 7 8 9 10 11 12} } {{week(s) month(s)*} } Diabetic p eripheral neuropathy 187913491 E11.40 Diabetic peripheral neuropathy noted. Loss of sensation bilaterall y, worse on left than right. -start gabapentin 300 mg nightly Elevated blood-pressure reading without diagnosis of hypertension 400430534 R03.0 Elevated BP today 144/86, 150/84 on repeat. Previously on anti-hyper tensive in remote past per pt report. -Keep home BP log -Check BP at next visit. Will initiate anti-hyper tensive at that time if blood pressure is still elevated. Pneumococc al vaccination declined 692892298 Z28.21 Patient due for pneumovax. Patient declines at this time. Gastro-eso phageal reflux disease with esophagitis 425412877 K21.00 Patient previously establishe d with Dr. Vides for GERD with esophagiti s. Symptoms concerning for developing Patel's esophagus. GI referral placed at last visit. GI recommendi ng EGD. Patient refusing due to need for COVID test prior to procedure. Instructed patient to return to clinic if symptoms worsen. Will leave referral in place. -continue omeprazole [id number] Scooter Esparza MD [facility] [address] [address] 08/23/2020 13:57:31 08/24/2020 09:42:31 Coronary arteriosclerosis 42602993 I25.10 Left heart catheteriz ation revealed a 60% non-flow limiting lesion of the mid LAD, nonobstruc tive disease of the circumflex , and severe lesions of the mid and distal RCA s/p 2 stents. - Continue ASA, ticagrelor , and atorvastat in - Requesting new referral to cardiology - ER precaution s given Type 2 bob betes mellitus 12620860 E11.9 Last A1C:{{less than 7.0% 7-8% 8-9% great er than 9% 8.4 06/2020#}}G oal A1C less than:{{7.0 % 8.0%*}}C urrent Therapy:{{ metformin sulfonylur ea TZD SGL T-2 DDP-4 GLP-1 RA long-ac ting insulin ra pid/short- acting insulin me tformin 500 mg BID#}} {{metformi n sulfonyl urea TZD S GLT-2 DDP- 4 GLP-1 RA long-ac ting insulin ra pid/short- acting insulin}}S tatin:{{ye s* no decl ined due to adverse reaction/a llergy dec lined}}GABRIEL /ARB:{{yes no* no due to negative nephropath y screening contraindi cated decl ined due to adverse reaction/a llergy dec lined}}Donovan t Exam:{{com pleted in the past 12 months-neg ative comp leted in the past 12 months-pos itive* com pleted in the past 12 months- result unknown du e}}Nephrop athy Screening: {{complete d in the past 12 months- negative c ompleted in the past 12 months- positive* due}}Pneum ovax 23:{{UTD D eclined* N ot given}}Eye Exam:{{com pleted in the last 12 months- negative c ompleted in the last 12 months- positive c ompleted per patient report due - recommende d annual dilated eye exam*}}Pat ient Education: healthy diet: yes exercise: no weight loss: no foot care: yes complicati ons of uncontroll ed diabetes: no medication compliance : yes Recommend titrating metformin to 2000 mg daily; will switch to ER due to GI upset Did not tolerate jardiance due to recurrent years infections ; will avoid SGTL-2 i at this time Recommend starting GLP agonist at follow up-discuss ed with patient who agrees to plan Next Visit: {{1 2 3 4* 5 6 7 8 9 10 11 12} } {{week(s)* month(s)} } [id number] MD Ofelia Alas [address] [address] 10/21/2020 14:45:13 10/24/2020 10:19:52 Body mass index 30+ - obesity 411138059 Z68.32 Discussed diet as the mainstay of losing weight. Goal 10% TBW loss in 3 months.150 mins of moderate intensity physical activity recommende d per week, divided per pt's choice. Increased blood pressure 08327871 R03.0 Chronic, uncontroll edGoal <140<90BP today 142/70. Alb/cr slightly elevated at last check-Cons ider Adding Lisinopril at next visit. Type 2 bob betes mellitus 56325481 E11.9 Last A1C:{{less than 7.0%* 7-8% 8-9% grea ter than 9%}} A1c 6.7 today, at goalGoal A1C less than:{{7.0 %* 8.0%}}C urrent Therapy:{{ metformin sulfonylur ea TZD SGL T-2 DDP-4 GLP-1 RA long-ac ting insulin ra pid/short- acting insulin me tformin 500 mg ER BID#}}Stat in:{{yes* no decline d due to adverse reaction/a llergy dec lined}}GABRIEL /ARB:{{yes no* no due to negative nephropath y screening contraindi cated decl ined due to adverse reaction/a llergy dec lined}}Donovan t Exam:{{com pleted in the past 12 months-neg ative comp leted in the past 12 months-pos itive* com pleted in the past 12 months- result unknown du e}}Nephrop athy Screening: {{complete d in the past 12 months- negative c ompleted in the past 12 months- positive* due}}Pneum ovax 23:{{UTD D eclined* N ot given}}Eye Exam:{{com pleted in the last 12 months- negative c ompleted in the last 12 months- positive c ompleted per patient report due - recommende d annual dilated eye exam*}}Pat ient Education: healthy diet:yesex ercise:yes weight loss:yesfo ot care:yesco mplication s of uncontroll ed diabetes:y esmedicati on compliance :yesNext Visit: {{1* 2 3 4 5 6 7 8 9 10 11 12} } mnths-RX sent for Metformin 500 mg ER BID-RTC 1 month to re-assess diarrhea-P t to call and schedule eye exam Coronary atherosclerosis 793713093 I25.84 Left heart catheteriz ation revealed a 60% non-flow limiting lesion of the mid LAD, nonobstruc tive disease of the circumflex , and severe lesions of the mid and distal RCA s/p 2 stents. Reports to current chest pain or dyspnea since procedure. - Continue ASA, ticagrelor , and atorvastat in- ER precaution s given Administra tion of SARS-CoV-2 antigen vaccine 604797039 Z23 Patient declined COVID Vaccine. Screening mammography 24 930278 Z12.31 Due for mammogram per USPSTF guidelines . Last mammogram was 2017.-Prakashe r placed for screening mammogram Tobacco de pendence syndrome 96168089 F17.200 Was smoking 1ppd , cut down to half ppd.Encour aged pt on cutting down. Discussed other methods of relaxation . Hyperlipidemia 52717676 E78.5 Last lipid panel 04/2020 when Atorvastat in was initiated. Repeat Lipid panel ordered. Pt to return for fasting labwork at earliest convenienc e.Continue Rosuvastat in 20 mg Diarrhea 51352810 R19.7 Present for a few months. Denies blood in stool. Says it's been worse since combining regular metformin and ER Metformin. Will send script for Metformin ER and lower dose to 500 mg BID. Re-assess in 4 weeks. Consider further workup if not improved. [id number] MD Ofelia Alas [address] [address] 11/25/2020 14:33:33 11/28/2020 12:44:34 Body mass index 30+ - obesity [id number] Z68.32 Discussed diet as the mainstay of losing weight. Goal 10% TBW loss in 3 months.150 mins of moderate intensity physical activity recommende d per week, divided per pt's choice. Type 2 bob betes mellitus 28688298 E11.9 Chronic, stableCurr ent Therapy:{{ metformin sulfonylur ea TZD SGL T-2 DDP-4 GLP-1 RA long-ac ting insulin ra pid/short- acting insulin me tformin 500 mg ER BID#}}Curr ently on Rosuvastat inNeeds GABRIEL/ARB due to + nephropath y screening. Foot exam performed in the last year, +Declined pneumovax. Patient Education: healthy diet:yesex ercise:yes weight loss:yesfo ot care:yesco mplication s of uncontroll ed diabetes:y esmedicati on compliance :yes-Vicente nue Metformin 500 mg ER 1 tab qam, 2 tabs QHS-DC Metformin 500 mg QAM-Pt to call and schedule eye exam Diarrhea 70255347 R19.7 Present for a few months. Denies blood in stool. Consider further workup if not improved. Microalbuminuria 2001323 06 R80.9 Alb/Cr elevated. Will start Lisinopril 5 mg QD today. Instructed pt to keep track of BP. Adult [facility] th examination [id number] Z00.00 Last colonoscop y 12/2016 was normal with recommenda tions for 10 yr follow up. Next colonoscop y 12/2026.De clined pneumonia vaccine.De clined COVID vaccine. Declines COVID testing for any in-hospita l procedures . [id number] Bety Lawton MD [facility] 47 3 [facility] [address] [place] [address] 01/19/2021 13:38:26 01/20/2021 09:36:27 Obesity 450025677 E66.9 BMI 33.7.Discu ssed diet as the mainstay of losing weight. Goal 10% TBW loss in 3 months. 150 mins of moderate intensity physical activity recommende d per week, divided per pt's choice. Diarrhea 92929353 R19.7 Present for a few months. Improving over time per patient report. Denies blood in stool. Continue Metformin ER as prescribed . Consider discontinu ing if no further improvemen t. Type 2 bob betes mellitus 31445309 E11.9 Chronic, [id number] 7 todayCurre nt Therapy:{{ metformin sulfonylur ea TZD SGL T-2 DDP-4 GLP-1 RA long-ac ting insulin ra pid/short- acting insulin me tformin 500 mg ER BID#}}On GABRIEL/ARB due to + nephropath y screening. Foot exam performed in the last year, +Declined pneumovax. Patient Education: healthy diet:yesex ercise:yes weight loss:yesfo ot care:yesco mplication s of uncontroll ed diabetes:y esmedicati on compliance :yes-Vicente nue Metformin 500 mg ER BID-Pt to call and schedule eye exam-Pt willing to continue Rosuvastat in Adult the [facility] examination [id number] Z00.00 Last colonoscop y 12/2016 was normal with recommenda tions for 10 yr follow up. Next colonoscop y 12/2026.De clined pneumonia vaccine.De clined COVID vaccine. Declines COVID testing for any in-hospita l procedures . Microalbuminuria 9243334 06 R80.9 Alb/Cr elevated. Continue Lisinopril 5 mg QD today. Instructed pt to keep track of BP.Will renew lisinopril today but will consider decreasing metoprolol eventually if dizziness persists. Diabetic p eripheral neuropathy 389276583 E11.40 Chronic, stable-Rx sent for Gabapentin 300 TID Dizziness 704688149 R42 Acute, unresolved Ddx: dehydratio n vs medication relatedWil l continue Lisinopril and metoprolol as is for now.Consid er decreasing metoprolol if dizziness persists.I nstructed patient on adequate water intake. Pain of ri ght ankle joint [id number] M25.571 Previous right ankle fracture. Recent re-appeari ng right ankle pain and edema contributi ng to recent unsteadine ss. Will refer to podiatry and this time and consider PT referral in the future for mobility and strengthen ing. [id number] Jose Ramírez MD [facility] 47 [address] [facility] [address] [place] [address] 05/29/2021 16:46:02 05/30/2021 12:52:47 Type 2 diabetes mellitus 28238199 E11.9 Chronic, [id number] 7 todayCurre nt Therapy:Gl yburideOn GABRIEL/ARB due to + nephropath y screening. Foot exam performed in the last year, +Declined pneumovax. Patient Education: healthy diet:yesex ercise:yes weight loss:yesfo ot care:yesco mplication s of uncontroll ed diabetes:y esmedicati on compliance :yes-disco ntinue Metformin 500 mg ER BID due to continued diarrhea-P t to call and schedule eye exam-vicente nue Rosuvastat in, intoleranc e to lipitor-Ur ine Alb/Cr ordered, BMP ordered-Rx sent for Glyburide 5 mg qd, discussed risks of hypoglycem ia. Patient wishes to initiate anyway. Declined Victoza. Previous intoleranc e of Jardiance. Screening mammography 24 455222 Z12.31 Due for mammogram per USPSTF guidelines . Last mammogram was in 2018.-Orde r placed for screening mammogram SARS-CoV-2 mRNA vaccine declined [id number] Z28.21 Patient refuses covid vaccine. Discussed risks and benefits. Gastro-eso phageal reflux disease with esophagitis 736996337 K21.00 continue omeprazole . refill placed. [id number] Ángel Sawyer [facility] [address] [facility] [address] [place] [address] 09/22/2021 11:45:22 09/25/2021 12:11:30 Type 2 diabetes mellitus 26951598 E11.9 Chronic, [id number] 6.9 today Current Therapy:Gl yburide. Intolerant of metformin. Declined Victoza. Previous intoleranc e of Jardiance. 180,140 170On GABRIEL/ARB due to + nephropath y screening. Foot exam performed in the last year, -Declined pneumovax. Patient Education: healthy diet:yesex ercise:yes weight loss:yesfo ot care:yesco mplication s of uncontroll ed diabetes:y esmedicati on compliance :yes -UTD with UACR and BMP-Pt to call and schedule eye exam-vicente nue Rosuvastat in, intoleranc e to lipitor Increased blood pressure 94544337 R03.0 Chronic, controlled Goal <140<90Con tinue Lisinopril 10 mg Obesity 669493664 E66.9 BMI 34.5Discus sed diet as the mainstay of losing weight. Goal 10% TBW loss in 3 months.150 mins of moderate intensity physical activity recommende d per week, divided per pt's choice. Screening mammography 24 611399 Z12.31 Due for mammogram per USPSTF guidelines . Last mammogram was in 2018.-Orde r placed for screening mammograms . Pt yet to schedule. Fatigue 22685039 R53.83 SubacuteCh eder CBC, B12/Folate Discussed increasing water intake and importance of exercise. Neuropathy 292610260 G62 .9 Chronic, stableRe-s tart gabapentin at 300 mg QHS due to fatigue. [id number] [facility] [address] [facility] [address] [place] [address] 04/20/2022 11:45:20 04/27/2022 15:48:04 Increased blood pressure 50485350 R03.0 Chronic, controlled Goal <140<90Con tinue Lisinopril 10 mg Morbid obesity 330769067 E66.01 Discussed diet as the mainstay of losing weight. Goal 10% TBW loss in 3 months.150 mins of moderate intensity physical activity recommende d per week, divided per pt's choice. Fatigue 14257065 R53.83 ChronicCBC , B12/Folate wnlDiscuss ed increasing water intake and importance of physical activity. Smoker 27559680 F17.200 Smoking 1/2 PPD, 40 yrsEncoura ged pt on cutting down. Discussed other methods of relaxation . Neuropathy 812487378 G62 .9 Chronic, stableDecl rodriguez gabapentin or additional medication at this time. Diabetes mellitus 750255 09 E11.9 A1c 7.4 as of 03/2022-Thurston s been taking glimepride for about a week. Tolerating well.-Will recheck A1c in May-Disc ussed with patient that she does not need to check blood sugars Ingrowing toenail 871446 009 L60.0 Patient has recurrent ingrown toenail and is requesting new podiatry referral. Bilateral trigger fingers [id number] 5259671 M65.30 Declined steroid injections .Declines referral for surgery.Wa nts to continue to monitor for now. [id number] JO MOREIRA , DO [place] [address] [address] [facility] [address] [place] [address] 09/04/2022 16:08:19 09/07/2022 12:31:17 Type 2 diabetes mellitus 37192282 E11.9 Chronic, worsening. A1c 8.5 today. Previously 7.4. Was previously on glyburide. Switched to glimepride after insurance stopped covering it. Not tolerating glimepride now. Had yeast infections with Jardiance. Wants to go back to Metformin. -Discussed with patient that she does not need to check blood sugar-Vu mmended eye exam-Switc anuradha back to metformin ER 500 mg BID-UACR ordered, have pt leave urine at next visit-BMP UTD-Foot exam next visit-Disc ussed GLP-1s, will check formulary to see what's covered. Recommende d follow up in 4 weeks to assess tolerance of metformin. Consider adding GLP1 if tolerating well. Pain of bi lateral hands [id number] 8744525 M79.641 M79.642 Chronic, unresolved . Concern for RA vs OA.-Check CCP and RF-Continu e aleve prn-Discus sed possible steroid injection for trigger fingers, declines.- Notified pt to pickle pumper hand XR orders and have done at earliest convenien e [id number] JENNYFER WHEELER MD [facility] [address] [facility] [address] [place] [address] 10/18/2022 11:39:03 10/23/2022 08:39:34 Type 2 diabetes mellitus 10310989 E11.9 Chronic. Previous A1c of 8.5.- A1c goal of <7%- Current medication s: Metformin 500 mg PO daily- D/w pt that she would benefit from increasing frequency to metformin 500 mg PO BID; however, pt did not want to take more medication s- D/w daily feet checks; pt denies current sxs of B/L lower extremity neuropathy ; however has intermitte nt decreased sensation- Has tried gabapentin 300 mg PO daily, without alleviatio n of sxs- Dr. [facility] and was told that she would qualify for diabetic shoes. Here today for completion of paperwork. States that she has decreased sensation intermitte ntly.- D/w pt importance of yearly eye exam- D/w pt importance of diet and exercise- BMI of 33.3- Pt to f/u in 2 mo for A1c check Hypertensive disorder 38 084833 I10 Chronic. Uncontroll ed. BP today of 145/82. Asymptomat ic. States that her BP was elevated 2/2 to not taking medication s. Pt reports that she just does not like taking medication s.- BP goal of <140/90 per JNC8 guidelines - Pt's current medication list includes lisinopril 10 mg PO daily and metoprolol succinate 50 mg PO daily; however, pt reports that she does not take her medication and does not plan to- Pt lost 9 lbs since last visit, will continue to work on weight loss for BP control- D/w patient increased risk for heart attack, stroke and renal impairment - Exercise minimum of 150 min / week over at least 3 days- Discussed dieting with a BMI goal of 25- Dieting should be rich in vegetables , fruits and whole grains- Will f/u in 2 mo for BP check Obesity 791276033 E66.9 - BMI 33.3 [id number] Alice fraire MD [facility] [address] [facility] [address] [place] [address] 12/10/2022 14:43:55 12/13/2022 15:19:09 Hypertensive disorder 69967597 I10 Chronic. Uncontroll ed. BP today of 144/82. Asymptomat ic. States that her BP was elevated 2/2 to not taking medication s. Pt reports that she just does not like taking medication s.- BP goal of <140/90 per JNC8 guidelines - Pt's current medication list includes lisinopril 10 mg PO daily and metoprolol succinate 50 mg PO daily; however, pt reports that she does not take her medication and does not plan to- With further discussion , pt reports that she will start taking her medication - D/w patient increased risk for heart attack, stroke and renal impairment - Exercise minimum of 150 min / week over at least 3 days- Discussed dieting with a BMI goal of 25- Dieting should be rich in vegetables , fruits and whole grains- Will f/u in 2 mo for BP check Type 2 bob betes mellitus 09957875 E11.9 Chronic. Previous A1c of 8.5. Pt requests to decrease medication pill load, very hesitant to add any new medication s at this time.- POC glucose of 8.3- A1c goal of <7%- Increase metformin to 1000 mg PO BID- D/w daily feet checks; pt denies current sxs of B/L lower extremity neuropathy ; however has intermitte nt decreased sensation- Has tried gabapentin 300 mg PO daily, without alleviatio n of sxs- Dr. Harris at [facility] and was told that she would qualify for diabetic shoes. Here today for completion of paperwork. States that she has decreased sensation intermitte ntly.- D/w pt importance of yearly eye exam- D/w pt importance of diet and exercise- BMI of 33- Pt previously started on rosuvastat in; however, doesn't take the medication . With further discussion , pt stated that she would start the medication - F/u in 3 mo for A1c check, she will likely benefit from another agent; however pt hesitant to start new medication s- At next appointmen t, consider further discussing neuropathy , carloz bauman other neuropathi c pain medication s Obesity 524888845 E66.9 - BMI 33 [id number] MD Ofelia Babb 47 [address] [facility] [address] [place] [address] 06/11/2023 14:26:52 06/14/2023 19:00:43 Hypertensive disorder 75298873 I10 Chronic. Uncontroll ed. BP today of 151/71, with similar repeat. Asymptomat ic. States that her BP was elevated 2/2 to not taking medication s. Pt reports that she just does not like taking medication s for the past couple of weeks- BP goal of <140/90 per JNC8 guidelines 2/2 to DM- Pt's current medication list includes lisinopril 10 mg PO daily and metoprolol succinate 50 mg PO daily; however, pt reports that she does not take her medication - With further discussion , pt reports that she will start taking her medication - D/w patient increased risk for heart attack, stroke and renal impairment - Exercise minimum of 150 min / week over at least 3 days- Discussed dieting with a BMI goal of 25- Dieting should be rich in vegetables , fruits and whole grains- Labs: BMP and alb:Cr ratio- Will f/u in 2-3 mo for BP check Type 2 bob betes mellitus 17479576 E11.9 Chronic. Previous A1c of 8.5. Pt requests to decrease medication pill load, very hesitant to add any new medication s at this time. Has tried SGLT-2 in the past, had yeast infections - POC glucose of 8.3- A1c goal of <8%- Restart metformin to 1000 mg PO BID- D/w daily feet checks; pt denies current sxs of B/L lower extremity neuropathy ; however has intermitte nt decreased sensation- Has tried gabapentin 300 mg PO daily, without alleviatio n of sxs- Start gabapentin 600 mg PO QHS- D/w pt importance of yearly eye exam- D/w pt importance of diet and exercise- BMI of 33.3- F/u A1c in 3 mo Obesity 799322030 E66.9 - BMI 33 [id number] MD Ofelia Babb [address] [address] 07/11/2023 14:43:23 07/15/2023 16:55:55 Diarrhea 79851275 R19.7 Acuteongoi ng for x5-6daysPt believes likely due to medication s given in the ER. Alleviated by imodium and kaopectate + fasting.De nies fever, nausea, vomiting, loss of appetite.C heck CMP, Lipase, stool culture.If no improvemen t consider H. Pylori test Inguinal pain 273728951 R10.2 Acute, uncontroll edDdx: Lumbar radiculopa thy vs Piriformis syndrome- Discussed taking gabapentin medication already prescribed - Discussed PT, will put in referral- Discussed Xray hip + pelvis but patient declines at this time- Encouraged to stretch daily. Exercises copied and given to patient. [id number] Alice Magaña-Ham er, MD [facility] [address] [address] 08/16/2023 13:52:39 08/19/2023 08:56:54 Hypertensive disorder 66120495 I10 Chronic. Uncontroll ed. BP today of 154/82, with repeat of 164/70. Asymptomat ic.Pt previously did not take her medication s, encouraged pt to take her medication s. Pt states that she occasional ly forgets to take her lisinopril . She did not take this AM 2/2 to taking it last night. Currently not taking the metoprolol succinate, self-disco ntinued.- BP goal of <140/90 per JNC8 guidelines 2/2 to DM- Increase lisinopril to 20 mg PO daily- With further discussion , pt reports that she will start taking her medication - D/w patient increased risk for heart attack, stroke and renal impairment - Exercise minimum of 150 min / week over at least 3 days- Discussed dieting with a BMI goal of 25- Dieting should be rich in vegetables , fruits and whole grains- UTD on labs- Pt has appointmen t on 08/21, will reassess BP Gastroesop hageal reflux disease [id number] K21.9 Chronic. Worsening. Pt has been taking ibuprofen 200 mg PO Q3-4 hours for left hip pain. States to have worsening globus and chest tightness. - S/P ED visit on 08/15 with unremarkab le cardiac w/u, was d/c with f/u instructio ns with PCP- Medication s: Omeprazole 40 mg PO daily- Consider addition of famotidine daily- D/w pt discontinu e use of ibuprofen- At next appointmen t, if worsening, consider GI referral for considerat ion of EGD Obesity 041008943 E66.9 - BMI 31.8 [id number] Bety Lawton MD [facility] [address] [facility] [address] [place] [address] 08/22/2023 11:52:37 08/30/2023 13:06:11 Hypertensive disorder 43740461 I10 Chronic. Uncontroll ed. BP today of 142/79. Asymptomat ic. Pt previously did not take her medication s, encouraged pt to take her medication s. Pt states that she occasional ly forgets to take her lisinopril . Currently not taking the metoprolol succinate, self-disco ntinued.- BP goal of <140/90 per JNC8 guidelines 2/2 to DM- Medication s: Lisinopril to 20 mg PO daily- With further discussion , pt reports that she will start taking her medication - D/w patient increased risk for heart attack, stroke and renal impairment - Exercise minimum of 150 min / week over at least 3 days- Discussed dieting with a BMI goal of 25- Dieting should be rich in vegetables , fruits and whole grains- UTD on labs- BP medication recently increased, will continue to monitor, f/u in 3-5 weeks for BP check Obesity 164359033 E66.9 - BMI 31.6 Inguinal pain 359461843 R10.2 Acute. Persistant . x2 months. Initially occurred after being on the elliptical . No trauma. Went to an urgent care and had an Xray that showed early degenerati ve changes. D/C with NSAID. ED visit on 07/01 where she was told that she had left lower radiculopa thy. Did not have any other imaging 2/2 to pt declining 2/2 to recent imaging at urgent care prior. D/C with NSAID and muscle relaxer. Denies saddle anesthesia and BM incontinen ce. Has urine incontinen ce, plan as below. Low suspicion for cauda equina syndrome. States that ibuprofen helps, usually an 8-9/10 w/o it.- PE today No pain on B/L sided ASIS, iliac crest, or PSIS. B/L log roll negative. Negative B/L straight leg tests. Strength and neurovascu larly intact, some hesitancy and tenderness with flexion of left hip.- S/P PT with minimal alleviatio n of her sxs- Pain management : Ibuprofen 200 mg PO Q3-4 hours, Gabapentin 600 mg PO QHS- D/w pt other OTC supportive measures- D/w pt likely MSK vs arthritic etiology- Considered MRI with occasional 'lightning ' type pain down left leg. PE today with B/L straight leg test negative. D/w pt that unlikely will change management facilitator at this time- Offered Ortho referral for evaluation and considerat ion for MRI if concerned for partial / full hip flexor tear vs evaluation for hip anatomy for injections - Will continue to monitor Type 2 bob betes mellitus 62841082 E11.9 Chronic. Previous A1c of 8.3. Pt requests to decrease medication pill load, very hesitant to add any new medication s at this time. Has tried SGLT-2 in the past, had yeast infections - POC glucose of 7.1- A1c goal of <8%- Medication s: Metformin to 1000 mg PO BID- D/w daily feet checks; pt denies current sxs of B/L lower extremity neuropathy ; however has intermitte nt decreased sensation- Currently taking gabapentin 600 mg PO QHS- D/w pt importance of yearly eye exam- D/w pt importance of diet and exercise- BMI of 33.3- Will continue with current management at this time. Consider addition of Januvia if persistent ly elevated or worsening Female str ess incontinence 89388933 N39.3 Unknown chronicity . Pt states that she occasional ly has difficulty holding in her urine. Reports unsure if she completely voids.Pote ntial for component of urgency incontinen ce. Pt states that when she coughs or sneezes, she occasional ly dribbles urine. x1 vaginal delivery.- Pt states that PT gave her handouts on kegel exercises- Pt was also told about pelvic floor therapy; however, pt would like to trial at home kegel exercises prior to official therapy- Will continue to monitor. Consider pelvic floor therapy at next appointmen t, consider component of urge incontinen ce. [id number] ANGIE POP MD [facility] [address] [facility] [address] [place] [address] 10/24/2023 10:32:04 10/29/2023 09:23:28 History of malignant melanoma of the skin 4006081503 08 Z85.820 H/o couple of atypical rash vs moles present bilaterall y on both fore arms. Not sure if its growing. Denies bleeding, pain. Differenti als atypical nevus vs malignant melanoma vs seborrheic keratosis- H/o skin cancer in the past evaluated by dermatolog y- Dermatolog y referral made for excisional biopsy Hypertensive disorder 38 615234 I10 BP Goal: {{Less than 140/90* Le ss than 150/90}}BP Controlled : {{yes* no} }Healthy Weight: {{4'10= 91-118 lbs 4'11= 94-123 lbs 5'= 97-127 lbs 5'1= 100-131 lbs 5'2= 104-135 5' 3= 107-140 lbs 5'4= 110-144 lbs 5'5= 115-149 lbs 5'6= 118-154 lbs* 5'7= 121-158 lbs 5'8= 125-163 lbs 5'9= 128-168 lbs 5'10= 132-173 lbs 5'11= 136-178 lbs 6'= 140-183 lbs 6'1= 144-188 lbs 6'2= 148-193 lbs 6'3= 152-199 lbs 6'4= 156-204 lbs}}Discu ssed: Low sodium balanced diet, moderate exercise at least 3-4 times per week for an average of 40 minutes, limiting alcohol to 1 drink per day (F) or 2 drinks per day (M), and smoking cessation if currently smoking.Ne xt Visit: {{1 2* 3 4 5 6 7 8 9 10 11 12} }{{week(s) month(s)* }}Refilled lisinopril History of Patel's esophagus [id number] 7929188 Z87.19 Continue to take PPI'sconsi james GI referral in next visit for possible EGD History of placement of stent for coronary artery disease 690603047 Z95.5 H/o 2 cardiac stents. Last one in 2020.- Stopped taking all medication s including aspirin and metoprolol . Counselled on how these meds help for heart. pt not willing to take aspirin in spite of counsellin g- Metoprolol was stopped by last PCP, not sure why and recommende d to call chava to schedule appt. Cardiology can address regarding metoprolol [id number] Alice fraire MD [facility] [address] [address] 12/13/2023 08:59:12 2023 10:51:42 Hypertensive disorder 11029230 I10 BP Goal: {{Less than 140/90* Le ss than 150/90}}BP Controlled : {{yes no*} }Healthy Weight: {{4'10= 91-118 lbs 4'11= 94-123 lbs 5'= 97-127 lbs 5'1= 100-131 lbs 5'2= 104-135 5' 3= 107-140 lbs 5'4= 110-144 lbs 5'5= 115-149 lbs 5'6= 118-154 lbs* 5'7= 121-158 lbs 5'8= 125-163 lbs 5'9= 128-168 lbs 5'10= 132-173 lbs 5'11= 136-178 lbs 6'= 140-183 lbs 6'1= 144-188 lbs 6'2= 148-193 lbs 6'3= 152-199 lbs 6'4= 156-204 lbs}}BP: 171/98 on repeat check in office Next Visit: {{1* 2 3 4 5 6 7 8 9 10 11 12} }{{week(s) month(s)* }}Increase lisinopril to 40mg History of placement of stent for coronary artery disease 334406759 Z95.5 H/o 2 cardiac stents. Last one in 2020.- Stopped taking all medication s including aspirin and metoprolol . Counselled on how these meds help for heart. pt not willing to take aspirin in spite of counsellin g- Metoprolol was stopped not sure why- Recommende d to call [facility] to schedule appt. Cardiology can address regarding metoprolol Hip pain 83033605 M25.55 9 Groin pain, not relieved with NSAIDs, Tylenol, Percocet, or lidocaine hip injection. Has orthopedic referral from outside provider but waiting for them to call her to schedule.- Tramadol 50 mg BID- Patient may also use with heat/ice, acetaminop hen, and NSAID. Patient instructed to avoid use of multiple NSAIDs at the same time- Recommend that patient contact the facility where she first received the MRI to request the records be sent to the orthopedic office. Lumbar radiculopathy 128 814565 M54.16 Symptoms of groin pain and shooting, electrici ty pain down her left leg and reports urinary hesitancy last 3 weeks; no sensation changes, weakness, or bowel incontinen ce.- Obtain lumbar MRI for workup of radiculopa thic pain Pain in pelvis 42328328 R10.2 Patient is concerned that she might have an issue with her ovary. Reported h/o laproscopi c surgery and inflamed ovary many years ago. Patient wondering if pain might be related to this.- More suspicious of MSK etiology for groin pain, however given patient's history and urinary complaints will obtain pelvic US. [id number] MELISSA SCHULTZ DO [facility] [address] [facility] [address] [place] [address] 01/07/2024 09:48:35 01/15/2024 10:29:48 Chronic low back pain [id number] M54.50 discussed [facility] and recommends to f/u Ortho for L hip pain eval. Plan to do steroid shot next Saturday.Re filled meloxicam and counselled on SEF/u 1 month Loss of hair [id number] L 65.9 H/o hair fall for couple of weeks. Mom has h/o hypothyroi dism, Denies any other related symptoms. Examinatio n normalRequ ests thyroid test, orders in Essential hypertension [id number] I10 BP Goal: {{Less than 140/90 Les s than 150/90*}}B P Controlled : {{yes no*} }Healthy Weight: {{4'10= 91-118 lbs 4'11= 94-123 lbs 5'= 97-127 lbs 5'1= 100-131 lbs 5'2= 104-135 5' 3= 107-140 lbs 5'4= 110-144 lbs 5'5= 115-149 lbs 5'6= 118-154 lbs* 5'7= 121-158 lbs 5'8= 125-163 lbs 5'9= 128-168 lbs 5'10= 132-173 lbs 5'11= 136-178 lbs 6'= 140-183 lbs 6'1= 144-188 lbs 6'2= 148-193 lbs 6'3= 152-199 lbs 6'4= 156-204 lbs}}Discu ssed: Low sodium balanced diet, moderate exercise at least 3-4 times per week for an average of 40 minutes, limiting alcohol to 1 drink per day (F) or 2 drinks per day (M), and smoking cessation if currently smoking.Ne xt Visit: {{1* 2 3 4 5 6 7 8 9 10 11 12} }{{week(s) month(s)* }}Continue lisinopril 40 mg , d/w pt to get home BP log. If BP not controlled in next visit, consider amlodipine BMP pending to check for creatinine raise Type 2 bob betes mellitus [id number] E11.9 A1C improved from 7.1-> 6.8Refille d gabapentin Influenza vaccination declined [id number] Z28.21 Readdress in next visit [id number] Bety Lawton MD [facility] [address] [facility] [address] [place] [address] 02/06/2024 12:07:21 02/10/2024 16:50:44 Dental caries [id number] K02.9 - H/o poor dention and seen dentist in years- Has scheduled appt with dentist in 2 weeks. Has R upper molar tooth pain for couple of days. Denies fever, abscess or drainage . On examinatio n, R upper molar caries present- Advised augmentin BID x 7 days- Provided dental caries instructio ns hand outs Low back pain [id number] M54.50 Mentions she will see [facility] again with her ongoing low back pain and R groin pain for possible shots and her MRI showing multi level degenerati ve changes with foraminal stenosis Essential hypertension [id number] I10 BP Goal: {{Less than 140/90* Le ss than 150/90}} 153/80-> 149/87 mm hg, most likely 2/2 dental painBP Controlled : {{yes no*} }Healthy Weight: {{4'10= 91-118 lbs 4'11= 94-123 lbs 5'= 97-127 lbs 5'1= 100-131 lbs 5'2= 104-135 5' 3= 107-140 lbs 5'4= 110-144 lbs 5'5= 115-149 lbs 5'6= 118-154 lbs* 5'7= 121-158 lbs 5'8= 125-163 lbs 5'9= 128-168 lbs 5'10= 132-173 lbs 5'11= 136-178 lbs 6'= 140-183 lbs 6'1= 144-188 lbs 6'2= 148-193 lbs 6'3= 152-199 lbs 6'4= 156-204 lbs}}Discu ssed: Low sodium balanced diet, moderate exercise at least 3-4 times per week for an average of 40 minutes, limiting alcohol to 1 drink per day (F) or 2 drinks per day (M), and smoking cessation if currently smoking.Ne xt Visit: {{1* 2 3 4 5 6 7 8 9 10 11 12} }{{week(s) month(s)* }}Continue lisinopril 40 mg ,Discussed with pt starting amlodipine for uncontroll ed BP, pt defers this timeBMP pending to check for creatinine raise Screening mammography of bilateral breasts [id number] 88559 Z12.31 Declined this visit, readdress in next visit Influenza vaccination declined [id number] Z28.21 Readdress in next visit [id number] CATRACHO HAJI MD [place] [address] [address] [address] 03/13/2024 14:11:42 04/02/2024 16:06:03 Essential hypertension [id number] I10 BP Goal: {{Less than 140/90* Le ss than 150/90}} per JNC8 guidelines . Elevated BPS secondary to R hip pain, InsomniaBP Controlled : {{yes* no} }Healthy Weight: {{4'10= 91-118 lbs 4'11= 94-123 lbs 5'= 97-127 lbs 5'1= 100-131 lbs 5'2= 104-135 5' 3= 107-140 lbs 5'4= 110-144 lbs 5'5= 115-149 lbs 5'6= 118-154 lbs* 5'7= 121-158 lbs 5'8= 125-163 lbs 5'9= 128-168 lbs 5'10= 132-173 lbs 5'11= 136-178 lbs 6'= 140-183 lbs 6'1= 144-188 lbs 6'2= 148-193 lbs 6'3= 152-199 lbs 6'4= 156-204 lbs}}Discu ssed: Low sodium balanced diet, moderate exercise at least 3-4 times per week for an average of 40 minutes, limiting alcohol to 1 drink per day (F) or 2 drinks per day (M), and smoking cessation if currently smoking.Ne xt Visit: {{1* 2 3 4 5 6 7 8 9 10 11 12} }{{week(s) month(s)* }}Continue lisinopril 40 mg and Amlodipine 10 mgDeclines adding HCTZ for uncontroll ed BPs or any other medication changes.Thurston d sleep studies in the past and pt doesn't want to use CPAP. Obesity [id number] E66.9 Screening for malignant neoplasm of colon [id number] Z12.11 Rpt 2026 Type 2 bob betes mellitus [id number] E11.9 A1C improved from 6.8-> 7.2D/w to restart taking Jardiance with cardio and renal protection History of Patel's esophagus [id number] 0781782 Z87.19 Chronicpat ient will call GI office to schedule f/u appt History of placement of stent for coronary artery disease [id number] Z95.5 H/o 2 cardiac stents. Last one in July 2020 with PCI of mid and distal RCA.- Stopped taking all medication s including aspirin and metoprolol . Counselled on how these meds help for heart. pt not willing to take aspirin in spite of counselbrenda g.She quit taking Metoprolol because she read some bad things about it.Will discuss in next visit importance of Metoprolol again and importance in CAD Health Concerns Section Related Observation LastModified by Organization Detai ls LastModified Time None Recorded Concern Status LastModified by Organization Details LastModified Time None Recorded Advance Directives Directive None Recorded Payers Encounter Date Sequence Insurance Name Policy Number Policy Nguyen Covered Member ID Nguyen Member ID Guarantor Name 10/24/2023 1 [employer] (MEDICARE REPLACEMENT/ ADVANTAGE - HMO) [id number] Jaimie Carmichael Bottoms [id number] [facility] 12/13/2023 1 [employer] (MEDICARE REPLACEMENT/ ADVANTAGE - HMO) [id number] Jaimie L Bottoms [id number] Jaimie Bottoms 01/07/2024 1 [employer] (MEDICARE REPLACEMENT/ ADVANTAGE - HMO) [id number] Jaimie L Bottoms [id number] Jaimie Bottoms 02/06/2024 1 [employer] (MEDICARE REPLACEMENT/ ADVANTAGE - HMO) [id number] Jaimie L Bottoms [id number] [facility] 03/13/2024 1 [employer] (MEDICARE REPLACEMENT/ ADVANTAGE - HMO) [id number] Jaimie Carmichael Bottoms [id number] [facility] Notes Date Note Type Note Provider Name and Address Organization Details Recorded Time 10/24/2023 text/html Hypertension F/UReported bypatient.Associated Symptoms:no dizziness; no lightheadedness; no chest pain; no shortness of breath; no palpitations; no edema; no calf pain with exertion Lifestyle:limiting/av oiding salt Medications:no side effects from medication 72 yo; PMHx of DM, HTN, GERD ( h/o barrets esophagus), CAD, Osteopenia, and HLD; presenting for med f/u, was restarted lisinopril for uncontrolled HTNHad 2 stents placed., last stent in 2020. [facility] haven't seen them in couple years. Mentions she stopped taking all her meds including aspirin , metoprolol as she didn't like the bruises with aspirinHas h/o skin cancer in the past and recently has been noticing some skin rashes and requests dermatology referral. ANGIE POP MD Attn: [address] [place], [address], [place] 10/28/2023 15:21:10 12/13/2023 text/html Musculoskeletal PainReported bypatient.Location:pa in radiating to the legs left;pain radiating to the ankle left; left hip Quality:sharp;tinglin g(electric shock down leg) Severity:same Duration:present <1 month Context:had evaluations by back specialist; previous MRI (of the hip); Tried lidocaine injection of hip joint with excel specialist but had no relief. Alleviating factors:rest; relieved by changing position Aggravating factors:movement/posi tioning; hip extension, walking upright Associated Symptoms:no fever; no numbness of the legs/feet; no incontinence ADL (Activities of Daily Living)do not improve with medication Medicationspain relief with current medications 0% (Tried Percocet, tylenol, NSAIDs w/o relief)Notes:Alexandr teixeira reports lower abdominal pain and bloating since hip pain worsened this month 72 yo; PMHx of DM, HTN, GERD ( h/o Barrets esophagus), CAD, Osteopenia, and HLD; presenting for med f/u, and BP check. Reporting she is in excruciating pain in her groin and radiating down her leg. Also complaining of urinary hesitancy the last 3 weeks that seemed to start with this most recent episode of groin pain. Says she has been evaluated by [facility] in [place] and they told her she needs to see a hip specialist. She is having trouble getting the prior imaging over to the ortho office so still waiting for them to get back to her about scheduling an appointment.Lost 10lbs in 2 months, poor appetite. Not actively trying to lose weight.Blood sugars been 140-160 fasting at home. been taking DM and HTN medications regularly. Home BP readings have been high recently. No h/a, vision changes, f/c, n/v/c/d, CP, SOB, calf claudication or leg swelling. Alice Aguilar MD Attn: [employer],[address] [facility], [place], [address], [facility] 12/13/2023 17:05:49 01/07/2024 text/html 72 yo; PMHx of D M, HTN, GERD ( h/o Barrets esophagus), CAD, Osteopenia, and HLD is here to discuss MRI results and med refillStates she seen [facility] in the past who referred her to Ortho for L Hip problem( Bone on bone) found on MRI. Seen Ortho and plan to get steroid shot next Saturday.Thinks the combination of Gabapentin+ Meloxicam + 375 mg Tylenol (2) works better. Requests refill of the same.Family h/o hypothyroidism MELISSA ANTOINEDO Attn: Accounting,[address] [facility], [place], [address], [facility] 01/15/2024 09:12:59 02/06/2024 text/html 72 yo; PMHx of D M, HTN, GERD ( h/o Barrets esophagus), CAD, Osteopenia, and HLD is here for dental painMentions for L groin pain which has been ongoing for couple of weeks, she will be seeing [facility] again for further evaluationHas dental pain for couple of days and her dental appt in few weeks . Seen dentist in years. Denies fever, trauma or swelling Bety Lawton MD Attn: Accounting[address] [facility], [place], [address], [facility] 02/10/2024 14:11:57 03/13/2024 text/html Hypertension F/UReported bypatient.Associated Symptoms:no dizziness; no lightheadedness; no chest pain; no shortness of breath; no palpitations; no edema; no calf pain with exertion Lifestyle:limiting/av oiding salt;not exercising regularly Medications:taking medications as directed; no side effects from medication 72 yo; PMHx of DM, HTN, GERD ( h/o Barrets esophagus), CAD, Osteopenia, LBP and HLD is here BP f/u.Home BP readings are in 150/90's.Has upcoming Ortho appt in 04/2024 for R hip pain shot CATRACHO HAJI MD Attn: Accounting,[address] [facility], [place], [address], [facility] - [facility] 04/01/2024 01:24:07 OBGyn Episode No OBEpisode recorded.
--- OUTSIDE RECORDS SUMMARY | 2024-04-23 18:39 | XMS_ITS | Clinical Summary ---
Author Organization [facility] Address [address] [place] [address]. [place], [place] [address] [place] [address] Care Team Providers Care Clearing House Clerk Name Role Phone Manuel Smith MD Primary Care Prov ider Allergies Active Allergy Reactions Criticality Noted Date Comments Atorvastatin Myalgias 04/03/2021 Bacid Itching 10/04/2021 Eggs Unknown,Itching 05/03/2016 Medications aspirin EC (ASPIRIN EC) 81 MG tablet Take 1 tablet by mouth daily. 05/03/2016 Active omeprazole 40 MG capsule Take 1 capsule by mouth daily. 09/10/2020 Active nitroglycerin 0.[address] 1 tablet (0.4 mg total) under the tongue every 5 (five) minutes as needed. 25 tablet 1 09/13/2020 Active glimepiride (AMARYL) 2 MG tablet Take 1 tablet by mouth daily. 04/09/2022 Active gabapentin (NEURONTIN) 600 MG tablet Take 1 tablet (600 mg total) by mouth daily. 01/30/2024 Active lisinopril (PRINIVIL) 40 MG tablet Take 1 tablet (40 mg total) by mouth daily. Active meloxicam (MOBIC) 15 MG tablet Take 1 tablet (15 mg total) by mouth daily. 02/08/2024 Active rosuvastatin (CRESTOR) 20 MG tablet Take 1 tablet (20 mg total) by mouth nightly at bedtime. 90 tablet 1 02/20/2024 Active amLODIPine (NORVASC) 10 MG tablet Take 1 tablet (10 mg total) by mouth daily. DOSE CHANGED 30 tablet 3 03/19/2024 Active nebivolol (BYSTOLIC) 10 MG tablet Take 1 tablet (10 mg total) by mouth daily. 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 Tobacco use disorder 09/10/2007 Resolved Problems Problem Noted Date Diagnosed Date Resolved Date Hyperlipidemia 09/10/2007 02/17/2024 Overview (04/03/2021): Diagnosis passenger coach driver utility for ICD-10 conversion Benign essential hypertension 07/17/2007 04/03/2021 Encounters Date Type Department Care Team Description 04/16/2024 Orders Only [facility] [address] [address] Kaylin Campos RN 03/19/2024 Orders Only [facility], [address] [address] Kaylin Campos RN 02/24/2024 3:03 PM ENGINEER OPERATIONS AND MAINTENANCE - 02/24/2024 11:59 PM ENGINEER OPERATIONS AND MAINTENANCE Hospital Encounter [facility] [place] [address] Aramis Sanches MD Discharge Disposition: Home or Self Care (Routine Discharge) 02/24/2024 Travel 02/20/2024 MyChart Message Enc [facility], [address] [address] Arleth Chavez, ANP-BC Lab Results 02/18/2024 Abstract [facility], [facility] [address] [place] [address] RobbiChayitoAMBROSIO 02/17/2024 10:15 AM ENGINEER OPERATIONS AND MAINTENANCE Office Visit [facility], [place] [address] [place] [address] Arleth Chavez, ANP-BC Hypertension 02/17/2024 Telephone [facility], [place] [address] [place] [address] Arleth Chavez, ANP-BC Blood Pressure 02/17/2024 Travel from Last 3 Months Family History Medical History Relation Comments Diabetes Father Heart Disease Father Heart Disease Mother Breast Cancer Paternal Aunt Relation Status Comments Father Mother Paternal Aunt Social History Tobacco Use Types Packs/Day Years Used Date Smoking Tobacco: Every Day Cigarettes 0.5 50 Smokeless Tobacco: Never Tobacco Cessation:Ready to Q uit: Not Asked; Counseling Given: Not Answered Alcohol Use Standard Drinks/Week Comments Never 0 (1 standard drink = 0.6 oz pur e alcohol) Comments No Sex and Gender Information Value Date Recorded Sex Assigned at Not on file Legal Sex Female 10:35 AM CDT Gender Identity Not on file Sexual Orientation Not on file Last Filed Vital Signs Vital Sign Reading Time Taken Comments Blood Pressure 164/80 02/17/2024 10:16 AM ENGINEER OPERATIONS AND MAINTENANCE re check Pulse 75 02/17/2024 10:08 AM ENGINEER OPERATIONS AND MAINTENANCE Temperature 36.2 ??C (97.2 ??F) 09/04/2023 8:35 PM CD T Respiratory Rate 16 09/04/2023 10:34 PM CDT Oxygen Saturation 97% 02/17/2024 10:08 AM ENGINEER OPERATIONS AND MAINTENANCE Inhaled Oxygen Concentration - - Weight 89.4 kg (197 lb) 02/17/2024 10:08 AM ENGINEER OPERATIONS AND MAINTENANCE Height 170.2 cm (5' 7 ) 02/17/2024 10:08 AM ENGINEER OPERATIONS AND MAINTENANCE Body Mass Index 30.85 02/17/2024 10:08 AM ENGINEER OPERATIONS AND MAINTENANCE Plan of Treatment Upcoming Encounters Date Type Department Care Team (Late st Contact Info) Description 08/17/2024 10:15 AM CDT Office Visit [facility], [address] [place], [place] [id number] Arleth Chavez, ANP-BC Three [facility]. [address] [place], [place] [id number] Health Maintenance Due Date Last Done Comments Kidney Health Evaluation 1950 Pneumococcal Vaccine: 65+ Years (1 of 2 - PCV) 12/15/1957 Diabetes: Retinopathy Eye Exam 12/15/1969 Hepatitis C 12/15/1969 DTaP, Tdap and Td Vaccines (1 - Tdap) 12/15/1970 Zoster Vaccines (1 of 2) 12/15/2001 RSV Immunization or 60+ Years (1 - Risk 60-74 years 1-dose series) 2011 Annual Medicare Wellness Visit 12/15/2016 Hemoglobin A1C 09/20/2022 03/22/2022, 08/31, 05/03/2016 Lung Cancer Screening 05/09/2023 05/09/2022 COVID-19 Vaccine ( - season) 2023 Mammogram Screening 12/22/2023 12/21/2021, 07/26/2017, 05/14/2012 Influenza Adult (#1) 2023 EGD-Patel's Surveillance 06/20/2024 06/20/2021 Lipid Panel 02/17/2025 02/18/2024, 03/02, 08/14/2020, Additional history exists Colorectal Cancer Screening Colonoscopy (10 Years) 06/21/2031 06/20/2021, 06/20/2021 Dexa Scan (General) Completed 11/21/2017, 11/14/2017, 01/10/2015, Additional history exists Meningococcal Vaccine Aged Out No suraj zain eligible based on patient's age to complete this topic RSV Immunizations Under 20 Months Aged Out No longer eligible based on patient's age to complete this topic Procedures Procedure Name Priority Date/Time Associated Diagnosis Comments US PELVIC NON OB COMP TA Routine 02/24/2024 4:16 PM ENGINEER OPERATIONS AND MAINTENANCE Pelvic and perineal pain LIPID PANEL Routine 02/18/2024 CT LUNG SCREENING Routine 05/09/2022 1:2 4 PM ENGINEER OPERATIONS AND MAINTENANCE Nicotine dependence, cigarettes, uncomplicated HEMOGLOBIN, GLYCOSYLATED Routine 03/22/2022 MG SCREENING W JESUSITA DASHA DIGI Routine 12/21/2021 2:38 PM CDT Encounter for screening mammogram for malignant neoplasm of breast EGD Routine 06/20/2021 9:23 AM CDT COLONOSCOPY Routine 06/20/2021 9:23 AM CDT BONE DENSITY/DEXA Routine 11/21/2017 1:2 9 PM CDT Postmenopausal state from Last 3 Months or Most Recently Relevant to Health Maintenance Results * US PELVIC NON OB COMP TA (02/24/2024 4:16 PM ENGINEER OPERATIONS AND MAINTENANCE) Anatomical Region Laterality Modality Pelvis Ultrasound 02/26/2024 8:32 AM ENGINEER OPERATIONS AND MAINTENANCE Impressions 02/26/2024 8:44 AM ENGINEER OPERATIONS AND MAINTENANCE IMPRESSION: 1. Only transabdominal examination performed as the patient declined transvaginal imaging. 2. Relatively small uterus. Otherwise limited evaluation of the uterus including inability to adequately visualize the endometrium. 3. Bowel gas obscures the ovaries and adnexa (ovaries not visualized on transabdominal imaging). 4. Consider further evaluation with pelvic CT and/or MRI if clinically indicated. Ordered By: ARAMIS SANCHES Interpreted By: Víctor Keys, 02/26/2024 8:32 AM Narrative 02/26/2024 8:44 AM ENGINEER OPERATIONS AND MAINTENANCE [address] [address] IMAGING STUDIES: ??US PELVIC NON OB COMP TA ? DATE: ??02/24/2024 3:06 PM HISTORY: ??Pain in pelvis ?? . 73-year-old postmenopausal female. Left lower quadrant abdominal/pelvic pain and left groin pain since July 2023. Patient reports prior hip problems with therapeutic injections but pain never entirely resolved. Reported family history of inguinal hernias. Reported prior transvaginal pelvic ultrasound at [facility] 12/27/2023 with reported few small calcified fibroids but otherwise negative. Patient reports history of laparoscopic evaluation of her left ovary but no surgical intervention/oophorectomy. COMPARISON: ??None this institution. Reported prior pelvic ultrasound 12/27/2023 is not in the PACS system. DISCUSSION: Transabdominal pelvic ultrasound: Anteverted uterus is ??5.8 x 2.5 x 4.7 cm. Endometrium not adequately visualized on transabdominal imaging. Ovaries are not visualized due to bowel. No apparent free pelvic fluid. On limited imaging of the left pelvis and left groin region at patient's reported area of pain, no appreciable sonographic abnormality. Patient declined transvaginal pelvic ultrasound exam today stating she had one done 12/27/2023 at [facility]. Procedure Note Víctor Keys MD - 02/26/[address] [address] IMAGING STUDIES: US PELVIC NON OB COMP TADATE: 02/24/2024 3:06PM HISTORY: Pain in pelvis . 73-year-old postmenopausal female. Left lowerquadrant abdominal/pelvic pain and left groin pain since July 2023. Patientreports prior hip problems with therapeutic injections but pain neverentirely resolved. Reported family history of inguinal hernias. Reportedprior transvaginal pelvic ultrasound at [facility] 12/27/2023 withreported few small calcified fibroids but otherwise negative. Patientreports history of laparoscopic evaluation of her left ovary but nosurgical intervention/oophorectomy. COMPARISON: None this institution. Reported prior pelvic ultrasound12/27/2023 is not in the PACS system. DISCUSSION: Transabdominal pelvic ultrasound: Anteverted uterus is 5.8 x 2.5 x 4.7 cm. Endometrium not adequatelyvisualized on transabdominal imaging. Ovaries are not visualized due tobowel. No apparent free pelvic fluid. On limited imaging of the left pelvis and left groin region at patient'sreported area of pain, no appreciable sonographic abnormality. Patient declined transvaginal pelvic ultrasound exam today stating she hadone done 12/27/2023 at [facility]. IMPRESSION: 1. Only transabdominal examination performed as the patient declinedtransvaginal imaging. 2. Relatively small uterus. Otherwise limited evaluation of the uterusincluding inability to adequately visualize the endometrium. 3. Bowel gas obscures the ovaries and adnexa (ovaries not visualized ontransabdominal imaging). 4. Consider further evaluation with pelvic CT and/or MRI if clinicallyindicated. Ordered By: ARAMIS SANCHES Interpreted By: Víctor Keys, 02/26/2024 8:32 AM Aramis Sanches MD ULTRASOUND Final Result * (ABNORMAL) LIPID PANEL (02/18/2024) CHOLESTEROL 265(A) 100 - 199 HDL 48 >40 TRIGLYCERIDES 213(A) 0 - 149 LDL (CALCULATED) 177(A) 0 - 99 VLDL CALCULATION 40 5 - 40 02/18/2024 us Default History Genericprovider LABORATORY Final Result * CT LUNG SCREENING (05/09/2022 1:24 PM ENGINEER OPERATIONS AND MAINTENANCE) Anatomical Region Laterality Modality Chest Computed Tomogra phy 05/15/2022 4:45 PM ENGINEER OPERATIONS AND MAINTENANCE Impressions 05/15/2022 4:55 PM ENGINEER OPERATIONS AND MAINTENANCE =====Impression:===== LUNG-RADS Category/Recommendation: Category 2 /Continue annual screening with LDCT in 12 months. ??Suggest follow up exam on or around 2023-05-09. LUNG-RADS category S: Negative, no new/unknown potentially significant incidental findings requiring urgent additional evaluation. Other Incidental Findings: As above. Thank you for choosing the [facility]'s Lung Screening Program. Ordered By: YISEL SU Interpreted By: Preston Barlow MD, 05/15/2022 4:45 PM Narrative 05/15/2022 4:55 PM ENGINEER OPERATIONS AND MAINTENANCE Examination: Lung Screening Low-Dose Ct Thorax Without Contrast Exam date/time: 05/09/2022 1:14 PM Clinical history: Asymptomatic patient meeting NCCN high-risk criteria for lung screening. * ??71 years * ??30 pack years or greater * ??Current smoker of have quit smoking within the last 15 years. Comparison: None. Technique: Noncontrast, helical, low-dose CT (LDCT) chest per standard departmental protocol. A dose lowering technique was used for this procedure, which may include, but is not limited to, dose reduction technique, automated exposure control, the use of iterative reconstruction, and ALARA (As Low As Reasonably Achievable) / Image Gently techniques. FINDINGS: Lung Screening Specific (LUNG-RADS): Nodule 1: 4.7 mm, Solid nodule, Right Upper Lobe Image slice# ??45 Nodule 2: 4.6 mm, Solid nodule, Right Upper Lobe Image slice# ??21 Nodule 3: 4.3 mm, Solid nodule, Right Upper Lobe Image slice# ??26 Nodule 4: 4.3 mm, Perifissural nodule, Right Middle Lobe Image slice# ??67 Nodule 5: 4.0 mm, Solid nodule, Right Upper Lobe Image slice# ??44 Potentially Significant Incidentals (LUNG-RADS category S): None. Additional Findings: Coronary artery calcifications and likely prior stenting, not well characterized on this exam. Atherosclerotic aorta and great vessels. No mediastinal or hilar lymphadenopathy. Diffuse hepatic steatosis. Diffuse degenerative changes. 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 Some levels remain unfused. Procedure Note Preston Barlow MD - 05/15/2022 Examination: Lung Screening Low-Dose Ct Thorax Without Contrast Exam date/time: 05/09/2022 1:14 PM Clinical history: Asymptomatic patient meeting NCCN high-risk criteria forlung screening. * 71 years * 30 pack years or greater * Current smoker of have quit smoking within the last 15 years. Comparison: None. Technique: Noncontrast, helical, low-dose CT (LDCT) chest per standarddepartmental protocol. A dose lowering technique was used for thisprocedure, which may include, but is not limited to, dose reductiontechnique, automated exposure control, the use of iterativereconstruction, and ALARA (As Low As Reasonably Achievable) / Image Gentlytechniques. FINDINGS: Lung Screening Specific (LUNG-RADS): Nodule 1: 4.7 mm, Solid nodule, Right Upper Lobe Image slice# 45 Nodule 2: 4.6 mm, Solid nodule, Right Upper Lobe Image slice# 21 Nodule 3: 4.3 mm, Solid nodule, Right Upper Lobe Image slice# 26 Nodule 4: 4.3 mm, Perifissural nodule, Right Middle Lobe Image slice#67 Nodule 5: 4.0 mm, Solid nodule, Right Upper Lobe Image slice# 44 Potentially Significant Incidentals (LUNG-RADS category S): None. Additional Findings: Coronary artery calcifications and likely priorstenting, not well characterized on this exam. Atherosclerotic aorta andgreat vessels. No mediastinal or hilar lymphadenopathy. Diffuse hepaticsteatosis. Diffuse degenerative changes. Chronic ankylosis across multiplelevels in the thoracic spine. Some levels remain unfused. =====Impression:===== LUNG-RADS Category/Recommendation: Category 2 /Continue annual screeningwith LDCT in 12 months. Suggest follow up exam on or around 2023-05-09. LUNG-RADS category S: Negative, no new/unknown potentially significantincidental findings requiring urgent additional evaluation. Other Incidental Findings: As above. Thank you for choosing the [facility]'s Lung ScreeningProgram. Ordered By: YISEL SU Interpreted By: Preston Barlow MD, 05/15/2022 4:45 PM us Yisel Su MD CT Final Resul t * HEMOGLOBIN, GLYCOSYLATED (03/22/2022) HGB A1C 7.4 % 03/22/2022 us Default History Genericprovider LABORATORY Final Result * MG SCREENING W JESUSITA DASHA DIGI (12/21/2021 2:38 PM CDT) Anatomical Region Laterality Modality Breast Bilateral Mammography 12/21/2021 3:45 PM CDT Impressions 12/21/2021 3:45 PM CDT IMPRESSION: No suspicious change since 07/26/2017. Recommendation: 1: Routine Screening ??Bilateral ??in 1 Year Assessment: ACR BI-RADS 2 - BENIGN FINDING(S) Ordered By: YISEL SU Interpreted By: Judd Harris MD, 12/21/2021 3:45 PM Narrative 12/21/2021 3:45 PM CDT Examination: Digital screening mammogram with CAD. Clinical history: Asymptomatic patient presents for routine screening. Comparison: 07/26/2017. Technique: Bilateral digital mammograms. The exam was interpreted with the use of a computer-aided detection (CAD) system. ??Additional 3-D tomosynthesis images were acquired. Tissue density: The breast tissue contains scattered fibroglandular densities. Findings: The breast tissue contains scattered fibroglandular densities. ?? Minor glandular asymmetry remains evident. Benign-appearing calcification noted. No suspicious mass, microcalcification or area of architectural distortion can be identified. From a mammographic standpoint, routine followup in one year would seem adequate. Yisel Su MD MAMMO Final Resul t * BONE DENSITY/DEXA (11/21/2017 1:29 PM CDT) Anatomical Region Laterality Modality Bone Mammography 11/21/2017 10:3 3 PM CDT Narrative 11/21/2017 10:34 PM CDT Examination: Bone Density Axial Exam Date/Time: 11/21/2017 1:04 PM Reason For Exam: Postmenopausal. ??Screening for osteoporosis. Comparison: None Findings: ??DEXA bone densitometry ?The bone mineral density (BMD) was determined by dual-energy x-ray absorptiometry, the results are as follows: ?AP Lumbar Spine L2 through L4 ?BMD Patient (/[facility]): 1.094 ?T-Score (Standard deviations from young adult peak bone density): 0.1 ?Bilateral femoral neck: ?BMD Patient (/[facility]): 0.701 ?T-Score (Standard deviations from young adult peak bone density): -1.3 ? Total femur: ?BMD Patient (/[facility]): 0.820 ? T-Score (Standard deviations from young adult peak bone density): -1.0 IMPRESSION: Femoral Necks: osteopenia. Lumbar spine: normal. Due to multilevel degenerative changes and spurring in the lumbar spine, bone mineral density measurement of femoral necks is felt to better represent true bone mineral density status. Interpreted By: Neal Koo MD, 11/21/2017 10:33 PM Order Doctor: JOY AREVALO Procedure Note Neal Koo MD - 11/21/2017 Examination: Bone Density Axial Exam Date/Time: 11/21/2017 1:04 PM Reason For Exam: Postmenopausal. Screening for osteoporosis. Comparison: None Findings: DEXA bone densitometry The bone mineral density (BMD) was determined bydual-energy x-ray absorptiometry, the results are as follows: AP Lumbar Spine L2 through L4 BMD Patient (GM/[facility]): 1.094 T-Score (Standard deviations from young adult peak bonedensity): 0.1 Bilateral femoral neck: BMD Patient (GM/[facility]): 0.701 T-Score (Standard deviations from young adult peak bonedensity): -1.3 Total femur: BMD Patient (GM/SQCM): 0.820 T-Score (Standard deviations from young adult peak bonedensity): -1.0 IMPRESSION: Femoral Necks: osteopenia. Lumbar spine: normal. Due to multilevel degenerative changes and spurringin the lumbar spine, bone mineral density measurement of femoral necks isfelt to better represent true bone mineral density status. Interpreted By: Neal Koo MD, 11/21/2017 10:33 PM Order Doctor: JOY AREVALO us Joy Arevalo MD DEXA Final Result from Last 3 Months or Most Recently Relevant to Health Maintenance Insurance [employer] Advance Directives Documents on File Type Date Recorded Patient Stitch Rubber Expl anation Legal Documents 09/13/2020 STENT Care Teams Clearing House Clerk Relationship Specialty Start Date End Date Manuel Smith MD PCP - General STUDENT 07/01/23
--- OUTSIDE RECORDS SUMMARY | 2024-04-23 18:39 | XMS_ITS | Clinical Summary ---
Author Organization [facility] Address [address] [place], [place] [address] Care Team Providers Care Element Winding Machine Tender Name Role Phone Unavailable Primary Care Provider Unavailabl e Social History Tobacco Use Types Packs/Day Years Used Date Smoking Tobacco: Never Assessed Sex and Gender Information Value Date Recorded Sex Assigned at Not on file Gender Identity Not on file Sexual Orientation Not on file Plan of Treatment Not on file
--- OUTSIDE RECORDS SUMMARY | 2024-04-23 18:39 | XMS_ITS | Encounter Summary ---
Author Organization [facility] Address [address] [place] [address]. [place], [place] [id number] [place] [address] Care Team Providers Care Rolls Mill Operator Name Role Phone Yisel Su MD Primary Care Provider [phone] Sumeet Manuel SKINNER MD Primary Care Prov ider Encounter Details Date Type Department Care Team (Late Contact Info) Description 05/08/2021 Dogecoin Message Enc [facility], [facility] [address] [place], [place] [id number] Arleth Chavez, ANP-[facility]. [address] [place], [place] [address] Test Results Social History Tobacco Use Types Packs/Day Years Used Date Smoking Tobacco: Every Day Cigarettes 0.5 50 Smokeless Tobacco: Never Alcohol Use Standard Drinks/Week Comments Never 0 (1 standard drink = 0.6 oz pur e alcohol) Comments Unknown Sex and Gender Information Value Date Recorded Sex Assigned at Not on file Legal Sex Female 10:35 AM CDT Gender Identity Not on file Sexual Orientation Not on file COVID-19 Exposure Response Date Recorded In the last 10 days, have yo u been in contact with someone who was confirmed or suspected to have Coronavirus/COVID-19? No / Unsure 05/05/2021 8:50 AM CONSTRUCTION RECRUITER documented as of this encounter Plan of Treatment Upcoming Encounters Date Type Department Care Team (Late st Contact Info) Description 08/17/2024 10:15 AM CDT Office [facility] [address] [place] [address] Arleth Chavez, [facility] [address] [place] [address] documented as of this encounter Visit Diagnoses Not on filedocumented in this encounter Additional Health Concerns Infection Onset Date Last Indicated Resolved Time COVID-19 Rule Out 06/16/2021 06/16/2021 06/16/2021 7:52 PM CDT COVID-19 Rule Out 09/04/2023 09/04/2023 09/04/2023 9:59 PM CDT documented as of this encounter Care Teams Rolls Mill Operator Relationship Specialty Start Date End Date Yisel Su MD PCP - General FAMILY PRACTICE 09/29/20 06/30/23 Manuel Smith MD PCP - General STUDENT 07/01/23 documented as of this encounter
--- OUTSIDE RECORDS SUMMARY | 2024-04-23 18:39 | XMS_ITS | Encounter Summary ---
Author Organization [facility] Address [address] [place] [address]. [place] [address] [place] [address] Care Team Providers Care Science Teacher Name Role Phone Yisel Su MD Primary Care Provider [phone] Sumeet Manuel SKINNER MD Primary Care Prov ider Encounter Details Date Type Department Care Team (Late st Contact Info) Description 04/19/2022 Abstract [facility] [address] [place], [place] [id number] Cachorro Benitez MA Social History Tobacco Use Types Packs/Day Years [...] on file Sexual Orientation Not on file documented as of this encounter Plan of Treatment Upcoming Encounters Date Type Department Care Team (Late st Contact Info) Description 08/17/2024 10:15 AM CDT Office Visit [facility], [address] [place], [place] [id number] Arleth Chavez, ANP-BC [facility]. [address] [place], [place] [phone] documented as of this encounter Procedures Procedure Name Priority Date/Time Associated Diagnosis Comments BASIC METABOLIC PANEL Routine 03/22/2022 LIPID PANEL Routine 03/22/2022 HEMOGLOBIN, GLYCOSYLATED Routine 03/22/2022 CBC (OUTSIDE LAB) Routine 09/22/2021 HEMOGLOBIN, GLYCOSYLATED Routine 09/22/2021 documented in this encounter Results * LIPID PANEL (03/22/2022) CHOLESTEROL 236 HDL 41 TRIGLYCERIDES 141 LDL (CALCULATED) 169 03/22/2022 Default History Genericprovider LABORATORY Final Result * BASIC METABOLIC PANEL (03/22/2022) SODIUM S/P/B 141 POTASSIUM S/P/B 4.9 CO2 26 CHLORIDE S/P/B 101 GLUCOSE 202 mg/dL CALCIUM S/P/B 9.3 BUN 17 CREATININE S/P/B 0.76 0.5 - 1.0 EGFR NON-AFR. AMER. 84 <=90 03/22/2022 Default History Genericprovider LABORATORY Final Result * HEMOGLOBIN, GLYCOSYLATED (03/22/2022) HGB A1C 7.4 % 03/22/2022 us Default History Genericprovider LABORATORY Final Result * CBC (OUTSIDE LAB) (09/22/2021) WBC 9.5 HGB 14.8 HCT 42.6 PLT 271 09/22/2021 Default History Genericprovider LAB-OUTSIDE/ABST RACTED Final Result * HEMOGLOBIN, GLYCOSYLATED (09/22/2021) HGB A1C 6.9 % 09/22/2021 us Default History Genericprovider LABORATORY Final Result documented in this encounter Visit Diagnoses Not on filedocumented in this encounter Additional Health Concerns Infection Onset Date Last Indicated Resolved Time COVID-19 Rule Out 09/04/2023 09/04/2023 09/04/2023 9:59 PM CDT documented as of this encounter Care Teams Science Teacher Relationship Specialty Start Date End Date Yisel Su MD PCP - General FAMILY PRACTICE 09/29/20 06/30/23 Manuel Smith MD PCP - General STUDENT 07/01/23 documented as of this encounter
--- OUTSIDE RECORDS SUMMARY | 2024-04-23 18:40 | XMS_ITS ---
Author Organization 1 OF Chris cheney [facility] Address [address] [address] Care Team Providers Care Blanker Operator Name Role Phone Tex Fay MD Primary Care Provider Trav Riojas REASON FOR VISIT vob check Encounters Encounter Location Date Provider Diagnosis 1 [facility] [address] [address] 01/22/2024 Trav Harris Plan Of Treatment No Information Progress Notes * Jaimie KITCHENDOB:1950 (73 yo F)Acc No.[id number]:01/22/2024 Patient:?Jaimie KITCHEN :1950???Age:73 Y???Sex:Female Address:[address] [place] [address], [address] * true * Date:? Generated for Oj cuevas/María/eTransmitting on:?04/23/2024 06:40 PM RESIDENTIAL DESIGNER
--- OUTSIDE RECORDS SUMMARY | 2024-04-23 18:40 | XMS_ITS ---
Author Organization 1 OF Chris cheney [facility] Address [address] [address] Care Team Providers Care Metal Miner Name Role Phone Tex Fay MD Primary Care Provider Trav Riojas Unavailable REASON FOR VISIT DFC (Diabetic foot care) Encounters Encounter Location Date Provider Diagnosis 1 OF Chris Harris [facility] [address] [address] 04/03/2024 Trav Harris Onychogryphosis L60.2 ; Nail dystrophy L60.3 ; Callus of foot L84 and Type 2 diabetes mellitus with other diabetic neurological complication E11.49 Assessments Encounter Date Diagnosis (ICD Code) Assessment Notes Treatment Notes Treatment Clinical Notes Section Notes 04/03/2024 Onychogryphosis (ICD-10 - L60.2) 04/03/2024 Nail dystrophy (ICD-10 - L60.3) 04/03/2024 Callus of foot (ICD-10 - L84) 04/03/2024 Type 2 diabetes mellitus with other diabetic neurological complication (ICD-10 - E11.49) Considering the associated comorbidities and physical exam findings today, this patient is at substantial risk of developing serious foot complications in the absence of regular and professional palliative foot care. Plan Of Treatment Treatment Notes Assessment Notes Type 2 diabetes mellitus wit h other diabetic neurological complication Considering the associated comorbidities and physical exam findings today, this patient is at substantial risk of developing serious foot complications in the absence of regular and professional palliative foot care. Next Appt Details Follow Up: 10-12 weeks or co ntact office PRN with any concerns, Reason: Procedure Notes * Category Sub-Category Detail Notes PALLIATIVE FOOT CARE: Callus paring: (13792) Le ss than five calluses as noted above reduced with a sterile scalpel blade Nail debride (00050): Debridement of fiv e or less mycotic and/or hypertrophic nails, utilizing manual and electric debridement the affected nails were reduced the nails in length and thickness with curettage of debris from nail margins performed as needed. Nail thickness reduced by:, 10% Dystrophic nail trim (G0127) All dystrop hic nails reduced in length and thickness with curettage of debris from nail margins as needed Progress Notes * Jaimie KITCHENDOB:1950 (73 yo F)Acc No.[id number]:04/03/2024 Progress Note Patient:?Jaimie KITCHEN Provider:Rustam Harris DPM :1950???Age:73 Y???Sex:Female D ate:04/03/2024 Address:[address] [place], [place] [id number] Pcp:Tex Fay MD Subjective: * Chief Complaints: * ???1. DFC (Diabetic foot car e). * HPI: ???MA assisting with visit::?Chart Prep?Myeshia.?HPI/Rooming:?, ......?Primary reason for visit::?73 year old female RTO for diabetic foot care. Pt reports no acute issues with nails or calluses today. * Medical History:? Objective: * Vitals:? * Examination: ???Lower Extremity MSK: : ?Left lower extremity inspection and palpation: ?No palpable masses or nodules noted. , No palpable masses or nodules noted..?Right lower extremity inspection and palpation: ?No palpable masses or nodules noted. , No palpable masses or nodules noted. .?Foot deformities:?LT foot:, hammertoes , 2nd-5th ,LT foot:, hammertoes , 2nd-5th.?General Examination: ?Constitutional / Appearance: ?No acute distress , Well nourished, Appropriate personal hygiene?.?Mental status: ?Cooperative, Oriented to person, place and time, Mood and affect: normal, Judgement and intellect: normal with appropriate response to questions.?Shoes today:?, XXXXXX.?Exam unchanged from prior visit:?with no significant changes in appearance or condition of feet .?Lower Extremity NEURO: : ?Monofilament test (10 gram pressure)?Exam of 04/03/2024.?Vibration perception: ?Exam of 04/03/2024.?Lower Extremity VASCULAR: : ?Pulses:?DP pulse diminished bilateral; PT pulse absent bilateral.?Temperature gradient: ? decreased from proximal to distal bilateral.?Pedal hair: ?sparse / absent bilateral.?Venous insufficiency edema:? insignificant bilateral.?Lower Extremity DERM: : ?Skin: ?relatively dry, thin, atrophic, no suspicious lesions, bilateral.?Nails:?Nail plates of:TA, T1, A9bevwti relatively thickened, dystrophic, discolored, incurvated, with subungual debris. , Remaining nails appear elongated and dystrophic with abnormal shape, periungual debris, subungual hyperkeratosis and/or partial onycholysis..?Hyperkeratotic lesions LEFT foot: ?medial hallux IPJ, lateral left heel.?Hyperkeratotic lesions RIGHT foot: ?, sub 5th MTH.? 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 Plan: * Treatment: * Procedures:?PALLIATIVE FOOT CARE::?Callus paring: ?(90255) Less than five calluses as noted above reduced with a sterile scalpel blade.?Nail debride (56912): ?Debridement of five or less mycotic and/or hypertrophic nails, utilizing manual and electric debridement the affected nails were reduced the nails in length and thickness with curettage of debris from nail margins performed as needed. Nail thickness reduced by:, 10%.?Dystrophic nail trim (G0127)?All dystrophic nails reduced in length and thickness with curettage of debris from nail margins as needed.? * Follow Up:?10-12 weeks or co ntact office PRN with any concerns * Images: * Electronic signature of Samra Harris DPM on 04/23/2024 at 06:39 PM ARMATURE REPAIRER Sign off status: Pending * Provider:?Margie Harris DPM Date:?0 04/03/2024 Generated for Oj cuevas/María/Sowmyaitting on:?04/23/2024 06:39 PM ARMATURE REPAIRER History and Physical Notes * HPI (History of Present Illness) Category Sub-Category Detail Notes Category Not es Primary reason for visit: 73 year old female RTO for diabetic foot care. Pt reports no acute issues with nails or calluses today. MA assisting with visit: HPI/Rooming: , ..... Chart Prep Myeshia Examination Category Sub-Category Detail Notes Category Not es General Examination Mental status: Cooperative, Oriented to person, place and time, Mood and affect: normal, Judgement and intellect: normal with appropriate response to questions Shoes today: , XXXXXX Exam unchanged from prior visit: with no significant changes in appearance or condition of feet Constitutional / Appearance: No acute di stress , Well nourished, Appropriate personal hygiene Lower Extremity VASCULAR: Venous insufficiency edema: insignificant bilateral Pulses: DP pulse diminished bilateral; PT pulse absent bilateral Temperature gradient: decreased from pro ximal to distal bilateral Pedal hair: sparse / absent bila teral Lower Extremity NEURO: Monofilament test (10 gram pres sure) Exam of 04/03/2024 Vibration perception: Exam of 04/03/2024 Lower Extremity MSK: Foot deformities: LT foot: , hammertoes , 2nd-5th , LT foot: , hammertoes , 2nd-5th Left lower extremity inspect ion and palpation: No palpable masses or nodules noted. , N o palpable masses or nodules noted. Right lower extremity inspec tion and palpation: No palpable masses or nodules noted. , N o palpable masses or nodules noted. Diagnostic Studies: X-rays of left lower extremity: Lower Extremity DERM: Skin: relatively dry, thin, atrophic, no suspicious lesions, bilateral Nails: Nail plates of: TA, T1, T6 appear relatively thickened, dystrophic, discolored, incurvated, with subungual debris. , Remaining nails appear elongated and dystrophic with abnormal shape, periungual debris, subungual hyperkeratosis and/or partial onycholysis. Hyperkeratotic lesions LEFT foot: medial hallux IPJ, lateral left heel Hyperkeratotic lesions RIGHT foot: , sub 5th MTH
--- OUTSIDE RECORDS SUMMARY | 2024-04-23 18:40 | XMS_ITS | Patient Health Record ---
Author Organization 1 OF Chris cheney [facility] Address [address] [facility] [address] [place] [address] Care Team Providers Care Deckhand Clam Dredge Name Role Phone Tex Fay MD Primary Care Provider Trav Riojas Unavailable [phone] Allergies No Known Allergies Reason For Referral No Information Medications Medication SIG (Take, Route, Fr equency, Duration) Notes Start Date End Date Status Azithromycin 250 MG [address] day, then 1 tablet daily for 4 days Orally Once a day for 5 day(s) 01/22/2024 Active Multivitamin Active Vitamin B Complex Ac tive Vitamin D Active Lisinopril Active Omeprazole Active Vitamin C Plus Activ e metFORMIN HCl Active Social History Tobacco Use: Social History Observation Description Date Details (start date - stop date) Current Smoker NA - NA Tobacco Use/Smoking Question Answer Notes Are you a current smoker How often do you smoke cigarettes? every day How many cigarettes a day do you smoke? 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) Active confirmed Problem 2095476651763323 Arthritis of right ankle (M19.071) Active confirmed Problem 45960923 Neuropathic pain of both feet (G57.93) Active confirmed Vital Signs Height 67 in 01/22/2024 Weight 209 lbs 01/22/2024 BMI 32.73 kg/m2 01/22/2024 Encounters Encounter Location Date Provider Diagnosis 3 [facility] Mendez [address] [place] [address] 01/22/2024 Trav Harris Onychogryphosis L60.2 ; Nail dystrophy L60.3 ; Callus of foot L84 ; Type 2 diabetes mellitus with other diabetic neurological complication E11.49 ; Paronychia of toe of left foot L03.032 ; Ingrowing nail L60.0 and Toe pain, left M79.675 1 OF Chris Harris DPM [facility] [address] [place] [address] 01/22/2024 Trav Harris Assessments Encounter Date Diagnosis (ICD Code) Assessment Notes Treatment Notes Treatment Clinical Notes Section Notes 01/22/2024 Onychogryphosis (ICD-10 - L60.2) 01/22/2024 Nail dystrophy (ICD-10 - L60.3) 01/22/2024 Callus of foot (ICD-10 - L84) 01/22/2024 Type 2 diabetes mellitus with other diabetic neurological complication (ICD-10 - E11.49) Considering the associated comorbidities and physical exam findings today, this patient is at substantial risk of developing serious foot complications in the absence of regular and professional palliative foot care. 01/22/2024 Paronychia of toe of left foot (ICD-10 - L03.032) Recommend an oral ABX today. Script sent to pharmacy 01/22/2024 Ingrowing nail (ICD-10 - L60.0) Discussed ingrown toenail condition and explained in detail conservative and surgical options of care including debridement / slant back procedure vs nail avulsion vs matrixectomy. Discussed pros and cons of each procedure including temporary relief vs more permanent relief with matrixectomy procedure but longer healing time. Patient elected to proceed with avulsion & I&D procedure of the medial LT 2nd toe. 01/22/2024 Toe pain, left (ICD-10 - M79.675) Plan Of Treatment No Information Insurance Providers Payer Name Payer Address Payer Phone Subscriber Number Group Number Insured Name Patient Relationship to Insured Coverage Start Date Coverage End Date [employer] Medicare [address] [place] [address] [id number] Jaimie Azevedo Self - patient is the insured Medical (General) History Medical History History ICD Code CAD, Diabetes, GERD, Neuropathy of feet, Cardiac Stents Surgical History Surgery Date(Month/Year) ankle repair cardiac stents
--- OUTSIDE RECORDS SUMMARY | 2024-04-23 18:40 | XMS_ITS | Referral Summary ---
Author Organization [facility] Care Team Providers Care Stone And Plate Preparer Apprentice Name Role Phone No, Physician Primary Care Provider [phone] Allergies Active Allergy Reactions Criticality Noted Date Comments Atorvastatin Muscle pain Medium 04/03/2021 Egg Extract Itching Low 12/27/2023 Milk Containing Products (Dairy) Itching Low Morphine Rash Medium 08/14/2020 Medications gabapentin (NEURONTIN) 600 mg tablet Take 1 tablet every day by oral route at bedtime. Active metFORMIN (GLUCOPHAGE) 1,000 mg tablet Take 1 tablet (1,000 mg total) by mouth 2 (two) times a day Active lisinopriL (PRINIVIL,ZESTR IL) 40 mg tablet Take 1 tablet (40 mg total) by mouth daily Active meloxicam (MOBIC) 15 mg tablet Take 1 tablet (15 mg total) by mouth 2 (two) times a day Active nitroglycerin (NITROSTAT) 0.4 mg SL tablet 09/13/2020 Active omeprazole (PriLOSEC) 40 mg capsule Take 1 capsule every day by oral route. 04/13/2016 Active traMADoL (ULTRAM) 50 mg tablet Take 1 tablet (50 mg total) by mouth 2 (two) times a day as needed Active Active Problems Problem Noted Date Diagnosed Date Neuropathy 04/19/2022 CAD (coronary artery disease) 09/24/2020 S/P right coronary artery (RCA) stent placement 08/15/2020 S/P angioplasty with stent 08/15/2020 HTN (hypertension) 08/15/2020 GERD (gastroesophageal reflux disease) NSTEMI (non-ST elevated myocardial infarction) ( [facility]/HCC) 08/14/2020 Osteopenia 11/25/2017 Overview (12/28/2023): 10 yr FRAX risk: Major osteoporotic = 8.0%, Hip Fracture = 0.7%. (cutoffs 20%, 3.0% respectively) Obesity (BMI 30-39.9) 12/20/2016 Patel's esophagus with esophagitis 12/20/2016 Bleeding internal hemorrhoids 12/20/2016 Overview (12/28/2023): Removal Reason: resolved Type 2 diabetes mellitus 05/03/2016 Overview (12/28/2023): a1c 7.2 10/2017 from 7.0 06/2017. 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 Social History Tobacco Use Types Packs/Day Years Used Date Smoking Tobacco: Every Day Cigarettes Tobacco Cessation:Ready to Q uit: Not Asked; Counseling Given: Not Answered Personal Safety Answer Date Recorded Getting School Help Needed Not on file 06/15 Comments No Sex and Gender Information Value Date Recorded Sex Assigned at Not on file Legal Sex Female 7:52 AM CDT Gender Identity Not on file Sexual Orientation Not on file Last Filed Vital Signs Vital Sign Reading Time Taken Comments Blood Pressure 148/84 12/27/2023 3:19 PM CDT Pulse - - Temperature - - Respiratory Rate - - Oxygen Saturation - - Inhaled Oxygen Concentration - - Weight 88 kg (194 lb) 12/27/2023 3:19 PM CDT Height 170.2 cm (5' 7 ) 12/27/2023 3:19 PM CDT Body Mass Index 30.38 12/27/2023 3:19 PM CDT Plan of Treatment Not on file Insurance [employer] MEDICARE GOLD Care Teams Stone And Plate Preparer Apprentice Relationship Specialty Start Date End Date No, Physician PCP - General 12/13/23
--- OUTSIDE RECORDS SUMMARY | 2024-04-23 18:40 | XMS_ITS ---
Author Organization 1 LEONOR cheney DPM [facility] Address [address] [address] [place] [address] Care Team Providers Care Rn Advanced Name Role Phone Tex Fay MD Primary Care Provider Trav Riojas Allergies No Known Allergies REASON FOR VISIT T1 is infected Medications Medication SIG (Take, Route, Fr equency, Duration) Notes Start Date End Date Status Azithromycin 250 MG [address] day, then 1 tablet daily for 4 days Orally Once a day for 5 day(s) 01/22/2024 Active Lisinopril Active Omeprazole Active metFORMIN HCl Active Multivitamin Active Vitamin B Complex Ac tive Vitamin D Active Vitamin C Plus Activ e Vital Signs Height 67 in 01/22/2024 Weight 209 lbs 01/22/2024 BMI 32.73 kg/m2 01/22/2024 Encounters Encounter Location Date Provider Diagnosis 3 [facility] MARILYN Mendez [address] [place] [address] [address] [place] [address] 01/22/2024 Trav Harris Onychogryphosis L60.2 ; Nail dystrophy L60.3 ; Callus of foot L84 ; Type 2 diabetes mellitus with other diabetic neurological complication E11.49 ; Paronychia of toe of left foot L03.032 ; Ingrowing nail L60.0 and Toe pain, left M79.675 Assessments Encounter Date Diagnosis (ICD Code) Assessment [...] left (ICD-10 - M79.675) Plan Of Treatment Medication Medication Name Sig Start Date Stop Date Notes Azithromycin 250 MG [address] day, then 1 tablet daily for 4 days Orally Once a day for 5 day(s) 01/22/2024 Treatment Notes Assessment Notes Type 2 diabetes mellitus wit h other diabetic neurological complication Considering the associated comorbidities and physical exam findings today, this patient is at substantial risk of developing serious foot complications in the absence of regular and professional palliative foot care. Paronychia of toe of left foot Recommend an oral ABX today. [facility] Discussed ingrown toenail condition and explained in detail conservative and surgical options of care including debridement / slant back procedure vs nail avulsion vs matrixectomy. Discussed pros and cons of each procedure including temporary relief vs more permanent relief with matrixectomy procedure but longer healing time. Patient elected to proceed with avulsion & I&D procedure of the medial LT 2nd toe. Next Appt Details Follow Up: 10-12 weeks or co ntact office PRN with any concerns, Reason: Procedure Notes * Category Sub-Category Detail Notes NAIL PROCEDURES: I&D periungual abscess Discusse d procedure and associated recovery period as well as potential risks and complications including, but not limited to recurrence of ingrown toenail, infection, worsening of condition, loss of entire toenail, loss of digit. Advised potential need for resection hypertrophic periungual tissue to help prevent recurrence of the condition. No guarantees given. Patient agreed to proceed with procedure consisting of:, incision and drainage, , . Consent form reviewed and signed by patient / guardian. Local anesthesia obtained with 3cc 0.5% marcaine plain., Aseptic prep of the toe(s) performed with betadine and following confirmation of anesthesia, , I&D procedure performed utilizing sterile instrumentation and atraumatic technique with resection of any hypertrophic granulation tissue as necessary. , The wound was then irrigated with betadine. Bacitracin ointment and DSD was applied to the wound and post-op instructions were dispensed and discussed., STERILE TRAY & INSTRUMENTS Utilization o f sterile tray and instrumentation along with aseptic technique. (A4550) PALLIATIVE FOOT CARE: Callus paring: (33205) Si ngle callus as noted above reduced with a sterile scalpel blade, Nail debride (84434): Debridement of fiv e or less mycotic [...] Notes * Jaimie KITCHENDOB:1950 (73 yo F)Acc No.[id number]:01/22/2024 Progress Notes Patient:?Jaimie KITCHEN Provider:?Margie Harris DPM :1950???Age:73 Y???Sex:Female D ate:01/22/2024 Address:[address] [place], [place] [id number] Pcp:Tex Fay MD Subjective: * Chief Complaints: * ???T1 is infected * HPI: ???MA assisting with visit::?HPI/Rooming:?Nancy.?Primary reason for visit::?73 year old female PTO for pain and swelling of the LT 2nd toe noticed 4 days ago, and then noticed a small blister on the medial plate of the LT 2nd toe, after using a new nail salon.?? PT describes the pain and swelling has decreased since she first noticed.? Pt has used alcohol and tried to express the area, but states there was no drainage. Pt also RTO for diabetic foot care.? She reports no acute issues with calluses today. * Medical History:? * Medications:?TakingMultivita min Vitamin B Complex Vitamin D Vitamin C Plus metFORMIN HCl Lisinopril Omeprazole Taking Multivitamin Taking Vitamin B Complex Taking Vitamin D Taking Vitamin C Plus Taking metFORMIN HCl Taking Lisinopril Taking Omeprazole DiscontinuedMetoprolol Tartrate Diclofenac Sodium 1 % Gel as directed Topical Apply no more than 4 grams to affected area of foot Q6-8 hours PRN Pain Medication List reviewed and reconciled with the patientDiscontinued Metoprolol Tartrate Discontinued Diclofenac Sodium 1 % Gel as directed Topical Apply no more than 4 grams to affected area of foot Q6-8 hours PRN Pain Medication List reviewed and reconciled with the patient * Allergies:?N.K.D.A.no[Allerg ies Verified] Objective: * Vitals:?Wt:209lbs, Wt-k .8 kg, Ht:67in, BMI:32.73Index. * Examination: ???General Examination: ?Constitutional / Appearance: ?No acute distress , Well nourished, Appropriate personal hygiene?.?Mental status: ?Cooperative, Oriented to person, place and time, Mood and affect: normal, Judgement and intellect: normal with appropriate response to questions.?Shoes today:?Slide-type sandals.?Lower Extremity VASCULAR: : ?Pulses:?DP pulse diminished bilateral; PT pulse absent bilateral.?Temperature gradient: ? decreased from proximal to distal bilateral.?Pedal hair: ?sparse / absent bilateral.?Venous insufficiency edema:? insignificant bilateral.?Lower Extremity DERM: : ?Skin: ?relatively dry, thin, atrophic, no suspicious lesions, bilateral.?Nails:?Nail plates of:TA, T1, [id number] relatively thickened, dystrophic, discolored, incurvated, with subungual debris. , Remaining nails appear elongated and dystrophic with abnormal shape, periungual debris, subungual hyperkeratosis and/or partial onycholysis..?Hyperkeratotic lesions LEFT foot: ?medial hallux IPJ, lateral left heel.?Hyperkeratotic lesions RIGHT foot: ?sub 5th MTH.?Ingrown nail / onychia noted to:?Nail plate(s) of T1 , medial border, with periungual erythema and edema, incurvation of nail plate, pain with palpation, + drainage., No cellulitis., No penetration of nail fold visible., No granuloma..?Lower Extremity NEURO: : ?Monofilament test (10 gram pressure)?Exam of 01/22/2024: ?- - revealed absent sensation to at least two distinct locations of plantar foot bilateral.?Vibration perception: ?Exam of 01/22/2024:??- - noted significantly diminished / absent per evaluation with 128Hz tuning fork applied to distal hallux compared to ipsilateral medial malleolus , @ bilateral feet.?Lower Extremity MSK: : ?Left lower extremity inspection and palpation: ?No palpable masses or nodules noted. , No palpable masses or nodules noted..?Right lower extremity inspection and palpation: ?No palpable masses or nodules noted. , No palpable masses or nodules noted. .?Foot deformities:?LT foot:, hammertoes , 2nd-5th ,LT foot:, hammertoes , 2nd-5th.? 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 Plan: * Treatment: 2.?Paronychia of toe of left foot? Start Azithromycin Tablet, 250 MG, 2 tablets on the first day, then 1 tablet daily for 4 days, Orally, Once a day, 5 day(s), 6, Refills 0.?? Notes: Recommend an oral ABX today. Script sent to pharmacy?? 3.?Ingrowing nail? Notes:Discussed ingrown toenail condition and explained in detail conservative and surgical options of care including debridement / slant back procedure vs nail avulsion vs matrixectomy. Discussed pros and cons of each procedure including temporary relief vs more permanent relief with matrixectomy procedure but longer healing time. Patient elected to proceed with avulsion & I&D procedure of the medial LT 2nd toe. ?? * Procedures:?NAIL PROCEDURES::?I&D periungual abscess?Discussed procedure and associated recovery period as well as potential risks and complications including, but not limited to recurrence of ingrown toenail, infection, worsening of condition, loss of entire toenail, loss of digit. Advised potential need for resection hypertrophic periungual tissue to help prevent recurrence of the condition. No guarantees given. Patient agreed to proceed with procedure consisting of:, incision and drainage, , . Consent form reviewed and signed by patient / guardian. Local anesthesia obtained with 3cc 0.5% marcaine plain., Aseptic prep of the toe(s) performed with betadine and following confirmation of anesthesia, , I&D procedure performed utilizing sterile instrumentation and atraumatic technique with resection of any hypertrophic granulation tissue as necessary. , The wound was then irrigated with betadine. Bacitracin ointment and DSD was applied to the wound and post-op instructions were dispensed and discussed.,.?STERILE TRAY & INSTRUMENTS?Utilization of sterile tray and instrumentation along with aseptic technique. (A4507).?PALLIATIVE FOOT CARE::?Callus paring: ?(69855) Single callus as noted above reduced with a sterile scalpel blade,.?Nail debride (50090): ?Debridement of five or less mycotic and/or hypertrophic nails, utilizing manual and electric debridement the affected nails were reduced the nails in length and thickness with curettage of debris from nail margins performed as needed. Nail thickness reduced by:, 10%.?Dystrophic nail trim (G0127)?All dystrophic nails reduced in length and thickness with curettage of debris from nail margins as needed.? * Procedure Codes:?75814 TRIM SKIN LESION, Modifiers: Q8 67949 DEBRIDE NAIL, 1-5, Modifiers: 59 , [id number] TRIMMING DYSTROPHIC NAILS ANY #, Modifiers: 59 , [id number] DRAINAGE OF SKIN ABSCESS, Modifiers: T1 , 59 * Follow Up:?10-12 weeks or co ntact office PRN with any concerns * Images: * Electronically signed by [facility] david Harris DPM on 04/02/2024 at 10:44 PM IMMUNOCHEMIST Sign off status: Completed true * Provider:Rustam Harris DPM Date:?1 Generated for Oj cuevas/María/eTransmitting on:?04/23/2024 06:39 PM IMMUNOCHEMIST History and Physical Notes * HPI (History of Present Illness) Category Sub-Category Detail Notes Category Not es Primary reason for visit: 73 year old female PTO for pain and swelling of the LT 2nd toe noticed 4 days ago, and then noticed a small blister on the medial plate of the LT 2nd toe, after using a new nail salon. PT describes the pain and swelling has decreased since she first noticed. Pt has used alcohol and tried to express the area, but states there was no drainage. Pt also RTO for diabetic foot care. She reports no acute issues with calluses today. MA assisting with visit: HPI/Rooming: Nancy Examination Category Sub-Category Detail Notes Category Not es General Examination Mental status: Cooperative, Oriented to person, place and time, Mood and affect: normal, Judgement and intellect: normal with appropriate response to questions Shoes today: Slide-type sandals Constitutional / Appearance: No acute di stress , Well nourished, Appropriate personal hygiene Lower Extremity VASCULAR: Venous insufficiency edema: insignificant bilateral Pulses: DP pulse diminished bilateral; PT pulse absent bilateral Temperature gradient: decreased from pro ximal to distal bilateral Pedal hair: sparse / absent bila teral Lower Extremity NEURO: Monofilament test (10 gram pressure) Exam of 01/22/2024: - - revealed absent sensation to at least two distinct locations of plantar foot bilateral Vibration perception: Exam of 01/22/2024 : - - noted significantly diminished / absent per evaluation with 128Hz tuning fork applied to distal hallux compared to ipsilateral medial malleolus , @ bilateral feet Lower Extremity MSK: Foot deformities: LT foot: [...] foot: medial hallux IPJ, lateral left heel Ingrown nail / onychia noted to: Nail pl ate(s) of T1 , medial border, with periungual erythema and edema, incurvation of nail plate, pain with palpation, + drainage., No cellulitis., No penetration of nail fold visible., No granuloma. Hyperkeratotic lesions RIGHT foot: sub 5 th MTH
--- OUTSIDE RECORDS SUMMARY | 2024-04-23 18:40 | XMS_ITS | Clinical Summary ---
Author Organization [facility] Care Team Providers Care [place] Planning Manager Name Role Phone No, Physician Primary Care Provider [phone] Allergies Active Allergy Reactions Criticality Noted Date [...] disease) NSTEMI (non-ST elevated myocardial infarction) ( [facility]/HCC) 08/14/2020 Osteopenia 11/25/2017 Overview (12/28/2023): 10 yr FRAX risk: Major osteoporotic = 8.0%, Hip Fracture = 0.7%. (cutoffs 20%, 3.0% respectively) Obesity (BMI 30-39.9) 12/20/2016 Patel's esophagus with esophagitis 12/20/2016 Bleeding internal hemorrhoids 12/20/2016 Overview (12/28/2023): Removal Reason: resolved Type 2 diabetes mellitus 05/03/2016 Overview (12/28/2023): a1c 7.2 10/2017 from 7.0 06/2017. Tobacco use disorder 09/10/2007 Hyperlipidemia 09/10/2007 Overview (12/28/2023): Diagnosis [employer] utility for ICD-10 conversion Surgical History Surgery Date Site/Laterality Comments CARDIAC CATHETERIZATION ANKLE FRACTURE SURGERY KNEE SURGERY LAPAROSCOPY Medical History Medical History Date Comments Abnormal Pap smear of cervix Hypertension Diabetes mellitus (HCC) Coronary artery disease Family History Medical History Relation Name Comments Diabetes Father Heart attack Father Hypertension Mother Thyroid disease Mother Breast cancer Neg Hx Colon cancer Neg Hx Ovarian cancer Neg Hx Uterine cancer Neg Hx Relation Name Status Comments Father Alive Mother Alive Social History Tobacco Use Types Packs/Day Years [...] on file Sexual Orientation Not on file Obstetrics History Para Term AB IAB SAB Ectopic Multiple Livin g Live Births 3 1 1 2 1 1 1 Date Outcome GA Total Labor Labor/2nd/3rd Weight Sex Type Anes PTL Peggy A1 A5 Name Clin Term Vag-S pont Living AB SAB Comments Menarche: 14 Age at first delivery: 22 Menopause: 55 Last Filed Vital Signs Vital Sign Reading [...] 12/27/2023 3:19 PM CDT Plan of Treatment Health Maintenance Due Date Last Done Comments Albumin Creatinine Ratio, Urine 1950 Colon Cancer Screening-Colonoscopy 1950 Depression Screening 1950 Fall Risk Assessment 1950 Hemoglobin A1C 1950 Hepatitis C Screening 1950 eGFR 1950 Dilated Eye Exam 1950 Foot Exam 1950 Pneumococcal vaccine 65+ (1 of 2 - PCV) 12/15/1957 DTaP/Tdap/Td Vaccine (1 - Tdap) 12/15/1962 Hepatitis B Screening 12/15/1969 Zoster Vaccine (1 of 2) 12/15/2001 Well Visit 65+ 12/15/2016 Osteoporosis Screening-Bone Density Scan 11/22/2019 11/21/2017 Breast Cancer Screening-Mammogram 12/21/2022 12/21/2021, 12/21/2021, 07/26/2017 Lipid Panel 03/22/2023 03/22/2022, 05/07/2012 Influenza Vaccine (#1) 2023 Insurance [employer] MEDICARE GOLD Care Teams [place] Planning Manager Relationship Specialty Start Date End Date No, Physician PCP - General 12/13/23
== END 2024-04-21 13:59 | disposition home or self-care (01) ==
PROVIDERS: Visit Provider Orthopaedic Surgery
DX: M16.12 Unilateral primary osteoarthritis, left hip (principal)
CPT/HCPCS: 20610; 77002; Q9966